=== PATIENT | female | born 1945 | race Caucasian/White ===

== ENCOUNTER → 2016-07-23 | Outpatient (CLI) | payer OTHER ==
[~2016-07-23] MED LIST: ACET-1311 PO; ADVIN25/60 INH; ASPCH81X PO; BACL10TA PO; CALC-51 PO; CALC600T9 PO; CHOL1000 PO; CYAN100020 PO; CYM/30 PO; FLUT0.15 NAE; GABA-113 PO; GABA1CAP5 PO; GARL10007 PO; GARL1TAB13 PO; HYDR-5688 PO; LEVO88TA3 PO; LOSA100T33 PO; METF-384 PO; OXYC-57 PO; SIMV40TA2 PO; VNTHFA/IN INH
--- NOTE | 2016-07-23 09:17 | DIAGNOSTIC IMAGING REPORT ---
CT CHEST SUPERDIMENSIONAL WITHOUT CT DOSE: 419.58 mGy.cm CLINICAL HISTORY: Pulmonary nodules TECHNIQUE: Helical images were acquired in transverse plane. COMPARISON STUDY: Noncontrast chest CT [facility]2016 FINDINGS: No thyroid abnormalities are visualized. There is no evidence of thoracic aortic aneurysm. There are coronary artery calcifications. Multiple gallstones are suspected. There are no adrenal masses. There is no evidence of pathologic axillary lymphadenopathy There is no evidence of pathologic hilar adenopathy given the limitations of a noncontrast study. There are multiple mediastinal lymph nodes which are at the upper limits of normal in size. There is pulmonary emphysema. There is a 7 mm left lower lobe pulmonary nodule as visualized in image #206/346. There is a 4 mm left lower lobe pulmonary nodule as visualized in image #202/346. There is 7 mm left lower lobe point nodule as visualized in image #187/346. There is a 3 mm left upper lobe pulmonary nodule as visualized in image #122/346. There is a 2 mm left upper lobe pulmonary nodule as visualized in image #66/346. There is a 5 mm right upper lobe pulmonary nodule as visualized in image #85/346. There is a 3 mm right upper lobe pulmonary nodule as visualized in image #134/346. There is a 6 mm bilobed right lower lobe pulmonary nodule as visualized in image #200/346. There is a 4 mm right lower lobe pulmonary nodule as visualized in image #209/346. IMPRESSION: 1. Multiple bilateral subcentimeter pulmonary nodules, similar in appearance to the prior June 30 study 2. Pulmonary emphysema 3. No evidence of focal pulmonary consolidation 4. Mediastinal lymph nodes at the upper limits of normal in size 5. Cholelithiasis Electronically signed by: Godfrey Harden M.D. 07/23/2016 9:15 AM
== END | disposition home or self-care (01) ==
LOC: C.CTS 08:46
PROVIDERS: ATTEND Surgery
DX: R91.8 Other nonspecific abnormal finding of lung field (principal); J43.9 Emphysema, unspecified; K80.20 Calculus of gallbladder without cholecystitis without obstruction

== ENCOUNTER 2016-07-25 08:10 | Day surgery (SDC) | payer OTHER ==
[2016-07-24 15:54] VITALS: BMI 28.0
[~2016-07-25] VITALS: Ht 165.1 cm; Wt 77.0 kg
[~2016-07-25 08:10] MED LIST changes: -CALC600T9 PO; -GARL10007 PO; +LACTATED RINGER'S 1000ML 1,000 ML IV SCH; +LOSA100T26 PO; -LOSA100T33 PO; -OXYC-57 PO
[2016-07-25 09:01] VITALS: BP 125/81; PULSE 64; TEMP 36.9; O2SAT 96; Ht 165.1 cm; Wt 77.0 kg
[2016-07-25 09:03] LABS: HEMATOCRIT 37.6 % (37-47); MEAN CELL VOLUME 84.9 fL (80-100); MEAN CORPUSCULAR HEMOGLOBIN 26.2 pg (25-34); MEAN PLATELET VOLUME 9.6 fL (7.4-10.4); PLATELET COUNT 447 K/uL (130-400); RED BLOOD COUNT 4.43 M/uL (4.2-5.4); WHITE BLOOD COUNT 6.73 K/uL (4.8-10.8)
[2016-07-25 09:31] LABS: MEAN CORPUSCULAR HGB CONC 30.9 g/dl (32-36)
[2016-07-25] MEDS ORDERED: EpHEDrine SULFATE INJ 50 MG/ML AMP IV PRN (10:30)
[2016-07-25] MEDS ORDERED: ONDANSETRON INJ 2 MG/ML 2 ML VIAL IV PRN (10:30)
[2016-07-25] MEDS ORDERED: ATROPINE SULFATE 0.1 MG/ML 5ML SYR IV PRN (10:30)
[2016-07-25] MEDS ORDERED: FENTANYL CITRATE INJ 50 MCG/1 ML 2 ML VIAL IV PRN (10:30)
--- NOTE | 2016-07-25 11:06 | History & Physical Bridge Note ---
H&P Re-Evaluation Bridge Note: I have examined the patient, reviewed the History & Physical and in the interval since the performance of the History & Physical I have noted the following changes of clinical significance: No changes noted
[2016-07-25] MEDS ORDERED: FENTANYL CITRATE INJ 50 MCG/1 ML 2 ML VIAL ONE ×2 (11:33→14:33)
[2016-07-25] MEDS ORDERED: LIDOCAINE HCL 2% 2 ML VIAL (20MG/ML) ONE ×2 (11:41→13:09)
[2016-07-25] MEDS ORDERED: METHYLENE BLUE 1% 10 ML VIAL ONE (11:43)
[2016-07-25] MEDS ORDERED: CLINDAMYCIN PHOS 150 MG/ML 2 ML VIAL ONE (12:40)
[2016-07-25] MEDS ORDERED: EpHEDrine SULFATE 50MG/5ML SYR ONE (12:57)
[2016-07-25] MEDS ORDERED: LARYING-O-JET KIT (LTA) EXT ONE ×2 (13:09)
[2016-07-25] MEDS ORDERED: PROPOFOL IV EMULSION 10 MG/ML 20 ML VIAL IV ONE ×2 (13:09→15:13)
[2016-07-25] MEDS ORDERED: ROCURONIUM BROMIDE 10 MG/ML 5 ML VIAL ONE ×2 (13:09→15:13)
[2016-07-25] MEDS ORDERED: GLYCOPYRROLATE INJ 0.2 MG/ML VIAL ONE ×2 (13:18→14:34)
[2016-07-25] MEDS ORDERED: BUPIVACAINE LIPOSOME 1/3% 266 MG/20 ML VIAL INFIL ONE (13:53)
--- NOTE | 2016-07-25 14:19 | Discharge Instructions ---
Discharge Instructions Visit Reason for Visit: Lung Nodules Discharge Discharge Diagnosis / Problem: Lung Nodules Discharge Goals Goal(s): Learn about illness Activity Recommendations Activity Limitations: resume your previous activity (in 24 hours) Anesthesia . Post Anesthesia Instructions: If you have had General Anesthesia or IV Sedation: * Do not drive today. * Resume driving when surgeon permits. * Do not make important decisions or sign legal documents today. * Call surgeon for: 1. Temperature elevations greater than 101 degrees F. 2. Uncontrollable pain. 3. Excessive bleeding. 4. Persistent nausea and vomiting. 5. Medication intolerance (nausea, vomiting or rash). * For nausea and vomiting use only clear liquids such as: tea, soda, bouillon until nausea subsides, then gradually increase diet as tolerated. * If you have any concerns or questions, call your surgeon's office. If physician is unavailable and it is an emergency, call 911 or go to the nearest emergency room. . Instructions / Follow-Up Instructions / Follow-Up 1. Follow-up appt. with Dr. Saravia in 1 week. Office will call you with date and time of appointment. You may cough up some blood. call physician if excessive amount noted. Diet Recommendations Recommended Home Diet: resume previous diet Pending Studies Studies pending at discharge: no Medical Emergencies . Who to Call and When: Medical Emergencies: If at any time you feel your situation is an emergency, please call 911 immediately. . Non-Emergent Contact Non-Emergency issues call your: Surgeon Call Non-Emergent contact if: temperature is above 100.5 . . "Provider Documentation" section prepared by Timothy Sanchez.
[2016-07-25] MEDS ORDERED: LABETALOL HCL IV 5 MG/ML 20ML ONE (14:34)
--- NOTE | 2016-07-25 15:02 | DIAGNOSTIC IMAGING REPORT ---
INTRAOPERATIVE RADIOGRAPHS CLINICAL HISTORY: Navigational bronchoscopy. Fluoroscopy time: 298 seconds. FINDINGS: 2 spot fluoroscopic views of the left lower chest are correlated with abdominal CT dated 07/23/2016. The bronchoscope projects over the left lower lobe on both images. There is no evidence of pneumothorax on these fluoroscopic views. IMPRESSION: Intraoperative images from left-sided bronchoscopy procedure. See operative report for detailed findings. Electronically signed by: Haris Snow M.D. 07/25/2016 3:00 PM Dictated Date/Time: 07/25/2016 2:58 PM
[2016-07-25] MEDS ORDERED: HydrALAZINE HCL 20 MG/ML VIAL ONE (15:12)
[2016-07-25] MEDS ORDERED: NEOSTIGMINE METHYLSULFATE 5 MG/5 ML SYR ONE (15:13)
--- NOTE | 2016-07-25 15:29 | DIAGNOSTIC IMAGING REPORT ---
SINGLE VIEW CHEST CLINICAL HISTORY: Status post bronchoscopy. FINDINGS: An AP, portable, upright chest radiograph is correlated with chest CT dated 07/23/2016. The examination is degraded by portable technique and patient rotation. The heart is enlarged and there is atherosclerotic calcification of the thoracic aorta. There is pulmonary vascular congestion. Emphysema and chronic interstitial thickening are identified. No airspace consolidation or large pleural effusion is seen. There is a small left apical pneumothorax with approximately 9 mm of pleural separation. Small metallic clips/fiducials project over the left lower lung. The skeletal structures are osteopenic. The bony thorax is grossly intact. IMPRESSION: 1. There is a small left apical pneumothorax identified post procedure. 2. Cardiomegaly with mild pulmonary vascular congestion. 3. Emphysema. Electronically signed by: Haris Snow M.D. 07/25/2016 3:27 PM Dictated Date/Time: 07/25/2016 3:25 PM
[2016-07-25 16:15] VITALS: BP 132/53; PULSE 70; TEMP 36.7; O2SAT 95
[2016-07-25 16:45] VITALS: BP 125/53; PULSE 71; O2SAT 96
[2016-07-25] MEDS ORDERED: NURSING VERBAL MED ORDER ONE (17:05)
[2016-07-25] MEDS ORDERED: ACETAMINOPHEN 325 MG TAB ONE (17:06)
[2016-07-25 17:15] VITALS: BP 144/69; PULSE 70; TEMP 37.2; O2SAT 98
--- NOTE | 2016-07-25 17:25 | OPERATIVE REPORT ---
DATE OF OPERATION: 07/25/2016 PREOPERATIVE DIAGNOSIS: 1. History of urothelial carcinoma with bilateral lung nodules. POSTOPERATIVE DIAGNOSIS: Same. PROCEDURE: 1. Navigational bronchoscopy with biopsy of left lower lobe nodules x2. 2. Marking of both nodules with fiducial marker and methylene blue for the inferior nodule. SURGEON: Dr. Saravia. CONTROL SPECIALIST: BARRY Belle. ANESTHESIA: General anesthesia and endotracheal intubation. 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 She has been evaluated by a urologist at [facility] and a consideration to a cystectomy with bilateral ureteral nephrectomies has been considered; however, on her workup, she was found to have a small nodule in her right upper lobe and 2 smaller nodules in her left upper lobe. Quite concerned about these as I feel they may well represent a metastatic disease. I saw the patient and her in the office and we had a very long discussion about this. Should she have metastatic disease in her lung, she is not a candidate for major resection. I elected to offer her a navigational bronchoscopy with biopsy. The right upper lobe lesion was small and against the pleura; however, I felt that we could access the 2 lower lobe lesions, although they are also small being subcentimeter. I told the patient that we would gabriel these with fiducial markers and methylene blue and then perform a left thoracoscopy with a wedge resection, if we did not get any answer from the rapid onsite evaluation. On 07/25/2016, I brought the patient to the operating room. She was very difficult intubation as her larynx was quite anterior. In anyway, the navigational bronchoscopy went well. I was able to locate both lesions and I put fiducial markers in both lesions. I also injected methylene blue to gabriel the more anterior lesion which was near the pleura. It was my feeling that we would go into wedge resection of this; however, there were suspicious cells on one of the biopsies, so it is possible we have a diagnosis, but we cannot tell from the rapid onsite evaluation. I did brushes and needles and forceps biopsies with touch preps of both lesions and felt with the radial ultrasound probe that we were in the middle of these. I did not biopsy the right because I never got a good access to this. It was peripheral and small and I simply could not get my scope or the navigational probe in position to where I felt the biopsy would be worthwhile. In addition, it was right against the pleura and I did not want to take a chance that could give her bilateral pneumothoraces. At this point, we elected to proceed with a thoracoscopy; however, patient was extremely difficult. We had difficulty doing this and the patient's blood pressure became labile. I elected to stop the case here. As we had difficulty getting a double lumen tube in, she has been under anesthesia for longer than 2 hours. I felt that the best plan would be to wait for the permanent sections and then bring her back as we did, use fiducial markers and we could wedge out these 2 masses in her left lower lobe at another date. She was extubated in the room although and appeared to be in stable condition at the conclusion of the case. DESCRIPTION OF PROCEDURE: The patient brought to the operating room and laid in supine position. General anesthesia induced and endotracheal intubation was performed. The fiberoptic bronchoscope was then placed. There was a scant amount of white sputum. I carefully inspected the trachea as well as the secondary and tertiary airways and saw no endobronchial lesions. Navigational probe was then placed in the distal trachea and after registering the airways, we then navigated out to most inferior nodule and came right upon this. This looked quite good fluoroscopically and a radial ultrasound probe showed that we were in the mass. I then did brush biopsies, needle biopsies and then did forceps biopsies and used touch preps and there were some suspicious cells; however, we could not call it on the rapid onsite evaluation. I elected fiducial marker and did so washings here. I then went to a more medial and superior lesion and this was a bit more difficult to get to, but after much manipulation, finally I was able to localize this with the radial probe and we again did brushes, needle biopsies forceps with touch preps and left the fiducial marker. It should be noted that I plan to wedge out the more anterior lesion and I did inject 0.5 mL of methylene blue towards the pleura. We then navigated out to the right upper lobe mass; however, I simply could not get a good shot at this. I tried this several times and finally stopped. It was my feeling that we were going to be doing a wedge resection anyway. We had very little in the way of bleeding. I suctioned out both airways and irrigated them out. I then slowly removed the bronchoscope. The patient was extubated over a tube exchanger and a double lumen tube was placed and it was very difficult. We finally got in place, but it had a great deal of difficulty getting this down into the left mainstem bronchus. At this point, especially in light of the fact we had suspicious cells on the touch preps, I felt that we may well have enough for diagnosis. I decided to abort here and discussed this with the patient's . I will bring that back in the office next week to go over the slides and if they are negative, I will bring her back and do a thoracoscopic wedge resection of these 2 nodules, under fluoroscopic guidance. I attest to the content of the Intraoperative Record and any orders documented therein. Any exceptio ns are noted below.
--- NOTE | 2016-07-25 17:55 | Anesthesiology Progress Note ---
Anesthesia Post Op Note Date & Time Jul 25, 2016 at 17:55 Vital Signs Pain Intensity: 3.0 Vital Signs Past 12 Hours Date Time Temp Pulse Resp B/P Pulse Ox O2 Delivery O2 Flow Rate FiO2 07/25/16 16:05 78 18 124/47 92 Room Air 07/25/16 15:55 36.3 73 15 117/71 90 Room Air 07/25/16 15:45 71 24 117/84 98 Nasal Cannula 2 07/25/16 15:35 70 20 130/54 94 Nasal Cannula 2 07/25/16 15:25 68 18 143/46 100 Mask 10 07/25/16 15:15 70 15 122/75 100 Mask 10 07/25/16 15:05 36.0 72 14 156/68 100 Mask 10 07/25/16 09:01 36.9 64 20 125/81 96 Room Air Notes Mental Status: alert / awake / arousable, participated in evaluation Pt Amnestic to Procedure: Yes Nausea / Vomiting: adequately controlled Pain: adequately controlled Airway Patency, RR, SpO2: stable & adequate BP & HR: stable & adequate Hydration State: stable & adequate Anesthetic Complications: no major complications apparent
[2017-02-03] MEDS ORDERED: CALC600T9 PO (14:39)
[2017-02-03] MEDS ORDERED: GABA-113 PO (14:39)
[2017-02-03] MEDS ORDERED: GARL10007 PO (14:39)
[2017-02-09] MEDS ORDERED: OXYC-57 PO (13:19)
== END 2016-07-25 17:50 | disposition home or self-care (01) ==
LOC: C.ACU 08:10
PROVIDERS: ATTEND Surgery
DX: R91.1 Solitary pulmonary nodule (principal); C67.9 Malignant neoplasm of bladder, unspecified; Z98.890 Other specified postprocedural states; Z91.041 Radiographic dye allergy status; Z88.8 Allergy status to other drugs, medicaments and biological substances; Z86.73 Personal history of transient ischemic attack (TIA), and cerebral infarction without residual deficits; Z80.9 Family history of malignant neoplasm, unspecified

== ENCOUNTER → 2016-08-25 | Outpatient (CLI) | payer OTHER ==
[~2016-08-25] MED LIST changes: +CALC600T9 PO; +GARL10007 PO; -LACTATED RINGER'S 1000ML 1,000 ML IV SCH; +OXYC-57 PO
--- NOTE | 2016-08-25 10:36 | DIAGNOSTIC IMAGING REPORT ---
PET/CT CLINICAL HISTORY: Bladder cancer. COMPARISON STUDY: CT scan of the chest dated 06/30/2016. Abdominal CT dated 01/10/2016. TECHNIQUE: One hour following the IV administration of 15.2 mCi of F-18 FDG, PET/CT examination was performed from the orbital meatal line through the bony pelvis. Noncontrast CT is performed for the purposes of anatomic correlation and attenuation correction. Note that this does not reflect a diagnostic CT examination. Images were reviewed on a separate [employer] independent workstation. Fused images were obtained. Standard uptake values reported are maximum values within the region of interest expressed in gm/mL. FINDINGS: PET FINDINGS: Head and neck: There is expected physiologic activity within the visualized brain parenchyma at the skull base and the salivary glands. There is a 2.1 cm FDG avid nodule identified within the right parotid gland on image #24. This demonstrates a maximum SUV of 5.6. Indeterminant focal FDG activity is identified just posterior to the anterior mandible on image #24. This demonstrates a maximum SUV of 5.0. Thorax: Evaluation of the thorax demonstrates expected physiologic myocardial activity. There are several pulmonary nodules which appear similar to the 06/30/[address] scan. The largest nodules are present in the right lower lobe on image #99 measuring 10 mm and in the left lower lobe on image #99 measuring 9 mm. At least 6 additional smaller nodules are identified. These nodules were not demonstrably FDG avid but are likely too small for PET characterization. Abdomen and pelvis: There is expected activity within the liver, spleen, kidneys, renal collecting system, and bladder. Low-level bowel activity is likely within physical limits. Unenhanced CT images: Visualized brain parenchyma the skull base is within normal limits. The visualized orbital contents are unremarkable. The visualized paranasal sinuses are clear. The mastoid air cells are well pneumatized. The left parotid gland and the submandibular glands are unremarkable. The thyroid gland is atrophic. No cervical lymphadenopathy is seen. There is atherosclerotic calcification of the thoracic aorta which is normal in caliber. The heart is enlarged and there is mild pericardial thickening. The coronary arteries are densely calcified. A small hiatal hernia is noted. Advanced emphysema is observed. There is no airspace consolidation or pleural effusion. See above under PET findings for discussion of pulmonary nodules. Metallic clips/fiducials are now identified in the left lower lobe. There is no mediastinal, hilar, or axillary lymphadenopathy. The unenhanced liver and adrenal glands are grossly unremarkable. There are numerous gallstones. The pancreas appears atrophic. There are calcified splenic granulomas. The kidneys demonstrate cortical atrophy and are without hydronephrosis. There is advanced atherosclerotic calcification of the abdominal aorta which is normal in caliber. There is no bowel obstruction. A duodenal diverticulum is incidentally noted. The appendix is well-visualized and normal. There is moderate to advanced colonic diverticulosis without CT evidence of acute diverticulitis. There is no abdominal, pelvic, or inguinal lymphadenopathy. The bladder is decompressed and not well assessed. The uterus and adnexa are normal as visualized. The skeletal structures are osteopenic. No lytic or blastic lesions are identified. IMPRESSION: 1. The bladder is decompressed and not well evaluated by PET due to significant excreted tracer activity within the urine. 2. There is no evidence of FDG avid metastatic disease in the abdomen or pelvis. 3. There are numerous (less than 10) indeterminant pulmonary nodules measuring up to 10 mm. These are likely similar in size and distribution to the 06/30/[address] scan when differences in technique are taken into account. These nodules were not demonstrably FDG avid but are too small for definitive PET characterization. 4. There is a 2.1 cm FDG avid nodule in the right parotid gland. 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 5. There is indeterminant FDG activity localizing just behind the anterior mandible. No corresponding lesion was seen on the low-dose CT images. Correlation with direct visualization is recommended. 6. Cardiomegaly and emphysema. 7. Advanced colonic diverticulosis without CT evidence of acute diverticulitis. 8. Cholelithiasis. 9. Additional findings as above. Electronically signed by: Haris Snow M.D. 08/25/2016 10:34 AM Dictated Date/Time: 08/25/2016 10:16 AM
== END | disposition home or self-care (01) ==
LOC: C.PET 07:32
PROVIDERS: ATTEND Internal Medicine Hematology
DX: C67.8 Malignant neoplasm of overlapping sites of bladder (principal); R91.8 Other nonspecific abnormal finding of lung field

== ENCOUNTER → 2016-12-01 | Outpatient (CLI) | payer OTHER ==
[~2016-12-01] MED LIST changes: -LOSA100T26 PO; +LOSA100T33 PO; +MethylPREDNISolone HOME PACK 16 MG TAB PO SCH; +OPTIRAY 320 IV PRN
--- NOTE | 2016-12-01 08:46 | DIAGNOSTIC IMAGING REPORT ---
ADDENDUM Comparison is now possible to a prior PET/CT fusion scan dated 08/25/2016. The multinodular bladder findings appear to represent an interval change. Neoplasm is again the diagnosis of exclusion. Electronically signed by: Stephane Sena M.D. 12/01/2016 8:50 AM Dictated Date/Time: 12/01/2016 8:49 AM ORIGINAL REPORT ABDOMEN AND PELVIS CT WITH IV AND ORAL CONTRAST CT DOSE: HISTORY: Bladder carcinoma BLADDER CA TECHNIQUE: Multiaxial CT images of the abdomen and pelvis were performed following the use of intravenous and oral contrast. COMPARISON STUDY: 01/10/2016 FINDINGS: Lung bases are clear. Fatty infiltration of the liver. Gallstones within the gallbladder lumen. Several small calcified splenic granulomas. Kidneys demonstrate mild fullness of the renal collecting systems bilaterally. This is slightly increased compared to the prior exam. There is a very small septated cyst lower pole right kidney unchanged. Bowel pattern is considered nonobstructive. Bladder shows multinodular-type changes throughout all major components of the bladder wall. The appendix is normal. There is no significant soft tissue pelvic adenopathy. The inguinal regions are unremarkable. IMPRESSION: 1. Diffuse nodularity of the bladder versus multi nodular polypoid change. 2. Mild fullness of the renal collecting systems and ureters bilaterally 3. A bladder neoplastic process must be considered. 4. Gallstones with fatty infiltration of liver. 5. No evidence for significant adenopathy or metastatic change. Electronically signed by: Stephane Sena M.D. 12/01/2016 8:44 AM Dictated Date/Time: 12/01/2016 8:39 AM
--- NOTE | 2016-12-01 08:50 | DIAGNOSTIC IMAGING REPORT ---
CT OF THE CHEST WITH IV CONTRAST CLINICAL HISTORY: Bladder carcinoma. COMPARISON STUDY: 07/23/2016 TECHNIQUE: Following the IV administration of 94 mL of Optiray-320, CT of the thorax was performed from the thoracic inlet to the lung bases. Images are reviewed in the axial, sagittal, and coronal planes. IV contrast was administered without complication. CT DOSE: FINDINGS: Thyroid: Falling minimal right thyroid tissue is visualized. No thyroid masses are evident. Thoracic aorta: The thoracic aorta is normal in course and caliber, noting standard 3-vessel arch anatomy. No aneurysm or dissection is seen. Pulmonary vasculature: The pulmonary trunk is normal in caliber. There are no central filling defects identified to suggest pulmonary embolus. Note that this examination was not protocoled for the evaluation of pulmonary emboli. HEART: The heart is enlarged. There are coronary calcifications present. Lungs and pleural spaces: There is pulmonary emphysema. There is no focal pulmonary consolidation. There are no pleural effusions. There is an 11 mm irregularly marginated right lower lobe point nodule as visualized in image #201/296. This remain stable. There is a stable 3 mm right upper lobe pulmonary nodule as visualized on image #148/296. There is a stable 3 mm left upper lobe pulmonary nodule as visualized on image #121/296. There is a stable 5 mm left lower lobe point nodule as visualized in image #208/296. There is a stable 8 mm left lower lobe pulmonary nodule as visualized in image #218/296. There is a 5 x 2 mm left lower lobe pulmonary nodule as visualized in image #197/296. This appears slightly smaller. Mediastinum: Mediastinal lymph nodes remain the upper limits of normal in size. [place]: There is no evidence of pathologic hilar adenopathy. Axilla: There is no evidence of pathologic axillary lymphadenopathy. Upper abdomen: There is mild hepatic steatosis. Skeletal structures: There are no lytic or blastic osseous lesions. IMPRESSION: 1. Multiple bilateral subcentimeter solid pulmonary nodules, essentially unchanged in size when compared the preceding study. 2. Mediastinal lymph nodes at the upper limits of normal in size. 3. Pulmonary emphysema Electronically signed by: Godfrey Harden M.D. 12/01/2016 8:48 AM Dictated Date/Time: 12/01/2016 8:40 AM
--- NOTE | 2016-12-01 09:07 | DIAGNOSTIC IMAGING REPORT ---
CT soft tissue neck SOFT TISSUE NECK WITH CLINICAL HISTORY: BLADDER CA bladder carcinoma TECHNIQUE: Transaxial acquisition with multi axial reformatted images. COMPARISON STUDY: PET scan dated 08/25/2016 FINDINGS: Unchanging 2.0 cm nodule deep to the right parotid gland. Unchanging nodular density posterior cervical chain demonstrating mild increase in activity on the prior PET scan. Unchanging nodular perimandibular change again previously described in the prior study. No new or interval findings. Salivary glands appear symmetric. Parotid and submandibular glands are unremarkable. Glottic and subglottic regions are unremarkable. IMPRESSION: 1. No change in the appearance of the CT of the soft tissue neck compared to the patient's prior PET scan. 2. Nodularity within the superior soft tissue neck is unchanged. 3. No evidence for new interval or progressive process based on this exam. Electronically signed by: Stephane Sena M.D. 12/01/2016 9:06 AM Dictated Date/Time: 12/01/2016 8:56 AM
== END | disposition home or self-care (01) ==
LOC: C.CTS 07:53
PROVIDERS: ATTEND Physician Assistant
DX: C67.8 Malignant neoplasm of overlapping sites of bladder (principal); D49.0 Neoplasm of unspecified behavior of digestive system

== ENCOUNTER → 2017-02-09 | Day surgery (SDC) | payer OTHER ==
[2017-02-03 14:41] VITALS: BMI 28.0
[~2017-02-09] VITALS: Ht 165.1 cm; Wt 76.8 kg
[~2017-02-09] MED LIST changes: +ATROPINE SULFATE 0.1 MG/ML 5ML SYR IV PRN; +BACITRACIN OINT 15 GM TUBE ONE; +BUPIVACAINE 0.5 % 5 MG/1 ML MPF 30ML VIAL ONE; -CALC-51 PO; +CEFAZOLIN 2000 MG/60 ML D5W IV SCH; +CEFAZOLIN IV 2,000 MG/60 ML D5W IV ONE; +EpHEDrine SULFATE INJ 50 MG/ML AMP IV PRN; +FENTANYL CITRATE INJ 50 MCG/1 ML 2 ML VIAL IV PRN; +FENTANYL CITRATE INJ 50 MCG/1 ML 2 ML VIAL ONE; -GABA1CAP5 PO; -GARL1TAB13 PO; -HYDR-5688 PO; +HYDROmorphone INJ 1 MG/ML SYR IV PRN; +KETAMINE HCL INJ 50 MG/ML 10 ML VIAL ONE; +LABETALOL HCL IV 5 MG/ML 20ML IV PRN; +LACTATED RINGER'S 1000ML 1,000 ML IV SCH; +LIDOCAINE HCL 1% 20 ML VIAL ONE; +LIDOCAINE HCL 2% 2 ML VIAL (20MG/ML) ONE; +LOSA100T26 PO; -LOSA100T33 PO; +MEPERIDINE HCL 25 MG/ML CARP IV PRN; +MIDAZOLAM HCL 1 MG/ML 2ML VIAL ONE; -MethylPREDNISolone HOME PACK 16 MG TAB PO SCH; +MoRPHine SULFATE 2 MG/ML CARP IV PRN; +MoRPHine SULFATE 4 MG/ML 1 ML CARP\\VIAL IV PRN; +ONDANSETRON INJ 2 MG/ML 2 ML VIAL IV PRN; +ONDANSETRON INJ 2 MG/ML 2 ML VIAL ONE; -OPTIRAY 320 IV PRN; +OXYCODONE/ACETAMINOPHEN 5-325 TAB PO PRN; +PROPOFOL IV EMULSION 10 MG/ML 20 ML VIAL IV ONE
[2017-02-09 11:09] VITALS: BP 168/63; PULSE 56; TEMP 36.7; O2SAT 97; Ht 165.1 cm; Wt 76.8 kg
[2017-02-09 11:30] LABS: BASO % 1.2 %; BASO ABS # 0.05 K/uL (0-0.2); EOS % 1.6 %; HEMATOCRIT 33.9 % (37-47); IG% 1.2 %; LYMPH ABS # 0.86 K/uL (1.2-3.4); MEAN CELL VOLUME 96.6 fL (80-100); MEAN CORPUSCULAR HEMOGLOBIN 30.2 pg (25-34); MEAN PLATELET VOLUME 9.2 fL (7.4-10.4); MONO % 21.8 %; NEUT % 54.2 %; PLATELET COUNT 210 K/uL (130-400); RED BLOOD COUNT 3.51 M/uL (4.2-5.4); WHITE BLOOD COUNT 4.31 K/uL (4.8-10.8)
[2017-02-09 11:35] LABS: COMPLETE YES; MEAN CORPUSCULAR HGB CONC 31.3 g/dl (32-36)
--- NOTE | 2017-02-09 13:11 | [facility] Post Operative Brief Note ---
Immediate Operative Summary Operative Date Feb 09, 2017. Pre-Operative Diagnosis aport insertion needed for chemotherapy Post-Operative Diagnosis aport insertion needed for chemotherapy Procedure(s) Performed Insertion of Venous Access Port to Right Internal Jugular Vein Surgeon Dr. Mike Faust Agronomy Manager Surgeon(s) Stephanie Andres PA-C Estimated Blood Loss 10ml Findings patent on SVC Fluids (cc crystalloids) 500ml Specimens none per surgeon Dr. Mike Faust Drains none Anesthesia sedation + local Complication(s) None Disposition Recovery Room / PACU
--- NOTE | 2017-02-09 13:18 | Discharge Instructions ---
Discharge Instructions Date of Service Feb 09, 2017. Admission Reason for Admission: Bladder, Lung, & Renal Cancer Discharge Discharge Diagnosis / Problem: Bladder, Lung, and Renal Cancer, aport insertion Discharge Goals Goal(s): Decrease discomfort Activity Recommendations Activity Limitations: as noted below No heavy lifting over 10 pounds for 1 week DO NOT raise right arm above head for 1 week No submerging incisions underwater for 2 weeks (No swimming, baths, or hot tubs) No driving while taking narcotic pain medication . Instructions / Follow-Up Instructions / Follow-Up You may shower in 3 days, sponge bath and wash hair in meantime. Try to keep dressings as dry as possible Keep steri strips on incisions for 10 days, they may fall off before that is okay. (Keep steri strips on neck incision for at least 1 week) If you are scheduled for chemotherapy sooner than 10 days you may remove steri strips on that incision. Follow-up with Dr. Faust in 1 week, please call office at [phone] if you do not already have an appointment Current Hospital Diet Patient's current hospital diet: Discharge Diet Recommended Diet: Regular Diet Procedures Procedures Performed: Insertion of Venous Access Port to Right Internal Jugular Vein Pending Studies Studies pending at discharge: no Medical Emergencies . Who to Call and When: Medical Emergencies: If at any time you feel your situation is an emergency, please call 911 immediately. . Non-Emergent Contact Non-Emergency issues call your: Primary Care Provider, Surgeon Call Non-Emergent contact if: you have a fever, temperature is above 101.5, your pain is not controlled, your pain is worsening, wound has increased drainage, wound has increased redness, wound has increased pain . "Provider Documentation" section prepared by Stephanie Andres. . VTE Core Measure Inpt VTE Proph given/why not?: Treatment not indicated [place] Drug Monitoring Program Search Results: patient reviewed within database, no issues identified
--- NOTE | 2017-02-09 13:22 | Anesthesiology Progress Note ---
Anesthesia Post Op Note Date & Time Feb 09, 2017 at 13:22 Vital Signs Pain Intensity: 0 Vital Signs Past 12 Hours Date Time Temp Pulse Resp B/P (MAP) Pulse Ox O2 Delivery O2 Flow Rate FiO2 02/09/17 13:12 37.2 60 16 162/67 100 Room Air 02/09/17 11:09 36.7 56 18 168/63 (98) 97 Room Air Notes Mental Status: alert / awake / arousable, participated in evaluation Pt Amnestic to Procedure: Yes Nausea / Vomiting: adequately controlled Pain: adequately controlled Airway Patency, RR, SpO2: stable & adequate BP & HR: stable & adequate Hydration State: stable & adequate Anesthetic Complications: no major complications apparent
--- NOTE | 2017-02-09 13:39 | DIAGNOSTIC IMAGING REPORT ---
CHEST ONE VIEW PORTABLE HISTORY: 72 years-old Female status post port insertion. COMPARISON: PET CT 08/25/2016, Chest radiograph 07/25/2016 TECHNIQUE: Portable upright AP view of the chest. FINDINGS: There is ventral placement of a right internal jugular Pjmlbj-p-Jrfo catheter with distal tip terminating to the right of midline within the expected region of the mid SVC. The patient is slightly rotated to the right. No postprocedural pneumothorax is identified. There is mild blunting the left costophrenic angle. There is nodularity of the lung bases measuring up to 2.0 cm. Bones appear grossly intact. IMPRESSION: 1. Status post placement of right internal jugular Oxsbvx-r-Cfew catheter terminating in the region of the mid SVC. No postprocedural pneumothorax identified. 2. Bibasilar nodularity is seen measuring up to 2.0 cm. These finding could be further evaluated with CT of the chest. 3. Mild blunting of left costophrenic angle may reflect atelectasis or trace pleural effusion. The above report was generated using voice recognition software. It may contain grammatical, syntax or spelling errors. Electronically signed by: Marco Antonio Aldana M.D. 02/09/2017 1:37 PM Dictated Date/Time: 02/09/2017 1:33 PM
[2017-02-09 13:42] VITALS: BP 172/74; PULSE 56; TEMP 37; O2SAT 99
[2017-02-09 14:10] VITALS: BP 154/70; PULSE 54; TEMP 37; O2SAT 96
--- NOTE | 2017-02-10 01:22 | OPERATIVE REPORT ---
DATE OF OPERATION: 02/09/2017 PREOPERATIVE DIAGNOSIS: Colon cancer, need of port insertion for chemo. POSTOPERATIVE DIAGNOSIS: Same. OPERATION: Insertion of port in right internal jugular vein. SURGEON: Dr. Mike Faust. PSYCHOLOGY ASSOCIATE: Stephanie Andres PA-C. ANESTHESIA: Conscious sedation plus local. ESTIMATED BLOOD LOSS: About 10 mL IV FLUID: 500 mL FINDING: Patent SVC and right internal jugular vein. COMPLICATIONS: None. INDICATION FOR THE PROCEDURE: This is a 72-year-old female who is referred for port insertion to treat her colon cancer for the chemo. I did talk to the patient about the benefit, risk and alternatives of the procedure, I indicated the risks may include but not limited such as bleeding, infection, injury to the vessel, injury to the lung, blood clog causing DVT, even , dysfunction of catheter. The patient understands. She signed informed consent. I answered all questions. DETAILS OF PROCEDURE: We brought the patient to the OR, put the patient in supine position. Then, we put SCD on bilateral legs to prevent DVT. The patient received 2 g Ancef IV for prophylactic antibiotic. The patient received conscious sedation by Anesthesiology. Then, we put the patient in Trendelenburg position. Then, I used ultrasound to gabriel right internal jugular vein. Then, the patient's right side of neck and right side of upper chest were prepped and draped in routine sterile fashion. After timeout, I injected local anesthesia on the right-sided neck, made about a 0.5 cm incision. Then, I used ultrasound to locate the right internal jugular vein. Used a 16-gauge needle, punctured right jugular vein without difficulty, passed the wire, removed the needle. Then, I used fluoro to confirm the wire and locate the SVC (superior vena cava). Then, I injected local on the right upper chest to make about a 3 cm incision on the right upper chest to create a pouch for the port. Hemostasis obtained. Then, I used dilator to connect the 2 incisions, passed the wire catheter in, then used a sheath, passed the wire into the SVC, removed the wire, and then I passed the catheter through the sheath, removed the sheath, and used fluoro again to locate the catheter tip in the junction between SVC and right atrium, then I connected the catheter to the port. I used 2-0 Prolene to fix the port on the right side chest wall at 3 points. Hemostasis obtained. I closed the incision by using 2-0 Vicryl for subcutaneous layer, closed skin by using 4-0 Vicryl continuous running, and then I used puncture needle to puncture the port, easily blood returned. I injected 10 mL heparinized saline. Then, we put the dressing on. The patient tolerated the procedure well. All instrument, needle and sponge count correct x2 at the end of case. The patient transferred to recovery room in stable condition. After the procedure, I did talk to the patient and family member about OR finding and procedure we did, they understand. I also gave them postop care instruction, they understand. I attest to the content of the Intraoperative Record and any orders documented therein. Any exception s are noted below.
== END | disposition home or self-care (01) ==
LOC: C.ACU 08:11
PROVIDERS: ATTEND Surgery
DX: C67.8 Malignant neoplasm of overlapping sites of bladder (principal); E11.42 Type 2 diabetes mellitus with diabetic polyneuropathy; E78.00 Pure hypercholesterolemia, unspecified; E05.10 Thyrotoxicosis with toxic single thyroid nodule without thyrotoxic crisis or storm; M81.0 Age-related osteoporosis without current pathological fracture; I10 Essential (primary) hypertension; J44.9 Chronic obstructive pulmonary disease, unspecified; D70.1 Agranulocytosis secondary to cancer chemotherapy; Z79.899 Other long term (current) drug therapy; I25.10 Atherosclerotic heart disease of native coronary artery without angina pectoris; I25.2 Old myocardial infarction; Z86.73 Personal history of transient ischemic attack (TIA), and cerebral infarction without residual deficits; Z87.891 Personal history of nicotine dependence; Z79.82 Long term (current) use of aspirin; Z79.84 Long term (current) use of oral hypoglycemic drugs

== ENCOUNTER → 2017-03-16 | Outpatient (CLI) | payer OTHER ==
[~2017-03-16] MED LIST changes: -ATROPINE SULFATE 0.1 MG/ML 5ML SYR IV PRN; -BACITRACIN OINT 15 GM TUBE ONE; -BUPIVACAINE 0.5 % 5 MG/1 ML MPF 30ML VIAL ONE; -CEFAZOLIN 2000 MG/60 ML D5W IV SCH; -CEFAZOLIN IV 2,000 MG/60 ML D5W IV ONE; -EpHEDrine SULFATE INJ 50 MG/ML AMP IV PRN; -FENTANYL CITRATE INJ 50 MCG/1 ML 2 ML VIAL IV PRN; -FENTANYL CITRATE INJ 50 MCG/1 ML 2 ML VIAL ONE; -HYDROmorphone INJ 1 MG/ML SYR IV PRN; -KETAMINE HCL INJ 50 MG/ML 10 ML VIAL ONE; -LABETALOL HCL IV 5 MG/ML 20ML IV PRN; -LACTATED RINGER'S 1000ML 1,000 ML IV SCH; -LIDOCAINE HCL 1% 20 ML VIAL ONE; -LIDOCAINE HCL 2% 2 ML VIAL (20MG/ML) ONE; -MEPERIDINE HCL 25 MG/ML CARP IV PRN; -MIDAZOLAM HCL 1 MG/ML 2ML VIAL ONE; -MoRPHine SULFATE 2 MG/ML CARP IV PRN; -MoRPHine SULFATE 4 MG/ML 1 ML CARP\\VIAL IV PRN; -ONDANSETRON INJ 2 MG/ML 2 ML VIAL IV PRN; -ONDANSETRON INJ 2 MG/ML 2 ML VIAL ONE; +OPTIRAY 320 IV PRN; -OXYCODONE/ACETAMINOPHEN 5-325 TAB PO PRN; -PROPOFOL IV EMULSION 10 MG/ML 20 ML VIAL IV ONE
--- NOTE | 2017-03-16 11:02 | DIAGNOSTIC IMAGING REPORT ---
(CHEST) THORAX WITH CLINICAL HISTORY: 72 years-old Female presenting with BLADDER CANCER. TECHNIQUE: Multidetector CT imaging of the chest was performed after the administration of intravenous contrast. IV contrast: 92 mL of Optiray 320. A dose lowering technique was used consistent with the principles of ALARA (as low as reasonably achievable). COMPARISON: 12/01/2016. CT DOSE (mGy.cm): The estimated cumulative dose is 1226.44 mGy.cm. FINDINGS: [employer] topogram: Unremarkable. On soft tissue windows, right internal jugular Mediport terminates in the SVC. Scattered subcentimeter mediastinal lymph nodes not significantly changed from prior exam, likely reactive. Few small bilateral hilar lymph nodes also present. Atherosclerosis of aortic arch. Mild enlargement of the main pulmonary artery, which measures 3.5 cm in maximal transverse dimension. Mild biatrial enlargement is suggested. Coronary artery calcification. No pericardial or pleural effusion. Suggestion of hepatic steatosis. Cholelithiasis. On lung windows, previously noted solid pulmonary nodules index below: -Irregular right lower lobe solid nodule now measures 8 mm, previously 8 mm (series 6 image 186). -Interval development of a solid pulmonary nodule at the right lung base measuring approximately 12 mm (series 6 image 206) -Stable appearance of the 3 mm solid pulmonary nodule in the right upper lobe (series 6 image 135) -Stable appearance of a 3 mm solid pulmonary nodule in the left upper lobe (series 6 image 123) -Segment interval decreased prominence of the peripheral left lower lobe nodule which now measures 6 mm, previously 8 mm (series 6 image 208) -More superiorly in the left lower lobe decreased prominence of the additional nodule which now measures 4 mm, previously 5 mm (series 6 image 189) Apical predominant mild emphysema. Numerous additional solid pulmonary nodules scattered throughout the left lower lobe, for example images 220, 228, 218. On bone windows, extensive degenerative change of the thoracic spine. No destructive osseous lesion. IMPRESSION: 1. Interval development of new pulmonary nodules, the largest measuring 12 mm at the right lung base with multiple new nodules in the left lower lobe. The additional previously noted bilateral solid pulmonary nodules are stable. Given the clinical history of bladder cancer, this raises concern for progression of disease. 2. No lymphadenopathy. 3. Emphysema. 4. Main pulmonary artery enlargement. 5. Suggestion of hepatic steatosis. 6. Cholelithiasis. Please see separately dictated CT of the abdomen and pelvis for additional findings. Electronically signed by: Ryan Deras M.D. 03/16/2017 11:01 AM Dictated Date/Time: 03/16/2017 10:51 AM
--- NOTE | 2017-03-16 11:10 | DIAGNOSTIC IMAGING REPORT ---
ABDOMEN AND PELVIS CT WITH IV AND ORAL CONTRAST CT DOSE: HISTORY: BLADDER CANCER TECHNIQUE: Multiaxial CT images of the abdomen and pelvis were performed following the use of intravenous and oral contrast. A dose lowering technique was utilized adhering to the principles of ALARA. COMPARISON STUDY: Abdomen and pelvis CT 12/01/2016. FINDINGS: Multiple subcentimeter pulmonary nodules which have increased in number. Dominant nodule within the base of the left lower lobe measures 7 mm. There is a stable 8 mm groundglass nodule within the left lower lobe on image 8. No pneumoperitoneum. No pneumatosis. No suspicious lytic or blastic osseous lesions. Mild hepatic steatosis. Punctate calcifications within the spleen. The adrenal glands and pancreas are unremarkable. Multiple gallstones filling the gallbladder. No gallbladder wall thickening. No retroperitoneal lymphadenopathy. The uterus and bilateral adnexa are unremarkable. A few prominent left pelvic sidewall lymph nodes. The largest measures 14 x 6 mm. These remain unchanged. Colonic diverticulosis. No bowel wall thickening or obstruction. Normal appendix. Tiny fat-containing umbilical hernia. 1 cm hypodense lesion within the right kidney remains stable. Multiple bladder masses are again noted. The bladder is decompressed resulting in suboptimal evaluation. Dominant bladder mass measures 1.5 cm. There is also soft tissue thickening at the left ureterovesical junction consistent with a additional site of neoplasm. This results in mild left hydronephrosis which has progressed. There is diffuse mild urothelial thickening within the left renal collecting system and left kidney. There are also areas of nodular thickening within the left renal collecting system with the largest soft tissue nodule measuring 7 mm. This is consistent with the patient's known history of urothelial malignancy. Mild left perinephric fat stranding which may be due to the hydronephrosis. Questionable soft tissue mass/thickening within the mid right ureter at the level of the iliac vessels. This is best in image 248. IMPRESSION: 1. Multiple bladder masses are again noted. There are also a few small urothelial masses seen within the left renal collecting system. This is consistent with the patient's history of a urothelial malignancy. The small mass at the left ureterovesical junction results in mild left hydronephrosis which is new from the prior study. 2. Questionable soft tissue mass/thickening within the mid right ureter at the level of the iliac vessels. However, there is no upstream dilatation. 3. Stable mildly prominent left pelvic sidewall lymph nodes. 4. Increase in number and size of the pulmonary nodules which is highly suspicious for metastatic disease. 5. There is also a 7 mm nodule within the left lower lobe which is ground glass. This could represent a low-grade primary bronchogenic malignancy. Follow is recommended. Electronically signed by: Baljeet Borja M.D. 03/16/2017 11:09 AM Dictated Date/Time: 03/16/2017 10:57 AM
== END | disposition home or self-care (01) ==
LOC: C.CTS 09:39
PROVIDERS: ATTEND Internal Medicine Hematology
DX: C67.8 Malignant neoplasm of overlapping sites of bladder (principal); R91.8 Other nonspecific abnormal finding of lung field

== ENCOUNTER → 2017-07-23 | Outpatient (CLI) | payer OTHER ==
[~2017-07-23] MED LIST changes: -LOSA100T26 PO; +LOSA100T33 PO
--- NOTE | 2017-07-23 09:04 | DIAGNOSTIC IMAGING REPORT ---
CHEST CT WITH CONTRAST CT DOSE: 1296.02 mGy.cm HISTORY: Follow-up scan in a patient with pulmonary nodules and history of bladder cancer MALIGNANT NEOPLASM BLADDER,LUNG NODULES TECHNIQUE: Multiaxial CT images of the chest, abdomen and pelvis were performed following the intravenous administration of intravenous contrast. Oral contrast also state archivist. A dose lowering technique was utilized adhering to the principles of ALARA. COMPARISON: CT chest 03/16/2017. FINDINGS: CT CHEST: No focal thyroid nodule identified. No pathologic adenopathy about the chest identified. Mildly prominent AP window lymph nodes are seen measuring up to 7 mm with subcarinal lymph node measuring 9 mm, unchanged. Heart is mildly enlarged with coronary arterial calcifications. Papillary calcifications are seen within the left intraconal. Aortic annular calcifications noted. There is moderate atherosclerosis of the thoracic aorta. No aortic aneurysm or dissection identified. Dilation of the main pulmonary artery is again seen, 3.4 cm suggesting pulmonary arterial hypertension. Right internal jugular Jdffqu-a-Umth catheter is noted with distal tip terminating in the SVC. Advanced emphysema without pneumothorax or pleural effusion. Multiple pulmonary nodules are again seen, largest measuring 2.2 x 1.8 cm abutting the adjacent fissure on image 180 series 4, previously measuring 8 mm on study dated 03/16/2017. Nodules within the basal right lower lobe measuring up to 12 mm are seen on image 202 series 4 which have also progressed from prior study. 6 mm nodule of the left lower lobe on image 29 series 4 is noted along with a 12 mm nodule of the left lower lobe on image 186 series 4 which previously measured approximately 4 mm. 9 mm nodule of the right upper lobe on image 102 series 4 previously measured 5 mm. Multiple additional subcentimeter pulmonary nodules are present bilaterally. No lobar airspace consolidation to suggest pneumonia. Central airways are patent. Cholelithiasis. Costophrenic granuloma are seen throughout the spleen and liver. Thickening of the left adrenal gland is unchanged. Soft tissues are unremarkable. No suspicious lytic or blastic bony lesions to suggest metastasis. The bones appear mildly demineralized. Degenerative changes are seen throughout the spine. CT ABDOMEN/PELVIS: Cholelithiasis without CT evidence of acute cholecystitis. Calcified granulomas are seen within the liver and spleen. No definite hepatic metastasis identified. Right adrenal gland is unremarkable. There is mild thickening of the left adrenal gland suggesting hyperplasia, unchanged. Mild diffuse pancreatic atrophy. Thank you urothelial enhancement is noted throughout the left ureter and left renal collecting system. There are multiple small urothelial mass is noted throughout the collecting system, ureteral pelvic junction and proximal ureter on the left including an 8 mm lesion of the left ureteropelvic junction, previously measuring 7 mm. There is a 9 mm urothelial lesion involving the inferior calyx of the left. There is moderate left-sided hydroureteronephrosis which has slightly progressed from prior study. The multiple ureteral lesions have also progressed from prior study. 6 mm urothelial lesion involves the inferior calyx on the right, image 166 series 7 which is new from prior exam. Focal urothelial lesion of the mid right ureter is noted on image 226 series 7 measuring 5 mm with multiple additional smaller right ureteral lesions which are progressed from prior study as well. Mild right-sided hydroureteronephrosis has developed. Multiple enhancing bladder masses are noted, largest which measures 3.9 x 2.8 cm, previously 2.6 x 2.2 cm. There is nodular lateral wall thickening noted throughout with mild perivesicular stranding. Uterus and adnexa are unremarkable. Moderate severe atherosclerosis of the aorta. Mildly prominent left pelvic sidewall lymph node measures 6 mm on image 341 series 7, unchanged. Right external iliac chain lymph node measures 8 mm on image 370 series 7, also unchanged. No new adenopathy identified. No bowel obstruction or focal bowel wall thickening. Tortuosity of the sigmoid colon. Moderate colonic diverticulosis without diverticulitis. Moderate colonic stool volume suggests constipation. No evidence of acute appendicitis. Soft tissues are unremarkable. The bones are unremarkable without suspicious lytic or blastic foci to suggest bony metastasis. IMPRESSION: 1. Progressive pulmonary metastasis involve the lungs bilaterally as above with largest metastatic focus involving the right lower lobe measuring 2.2 cm. 2. Progressively enlarged enhancing bladder masses with mildly progressive bilateral obstructive uropathy secondary to multiple new and enlarging urothelial lesions as above, left greater than right. These findings are consistent with patient history of metastatic urothelial carcinoma. 3. Unchanged mildly prominent left pelvic sidewall and right external iliac chain lymph nodes without new adenopathy identified. 4. No evidence of bony metastasis. 5. Prior granulomatous disease. 4. Cholelithiasis. 5. Emphysema with evidence of pulmonary arterial hypertension. Electronically signed by: Marco Antonio Aldana M.D. 07/23/2017 9:03 AM Dictated Date/Time: 07/23/2017 8:37 AM
== END | disposition home or self-care (01) ==
LOC: C.CTS 08:14
PROVIDERS: ATTEND Internal Medicine Hematology
DX: C67.8 Malignant neoplasm of overlapping sites of bladder (principal); R91.8 Other nonspecific abnormal finding of lung field; C78.01 Secondary malignant neoplasm of right lung; C78.02 Secondary malignant neoplasm of left lung; K80.20 Calculus of gallbladder without cholecystitis without obstruction; J43.9 Emphysema, unspecified

== ENCOUNTER 2017-09-04 10:55 | Inpatient (IN) | payer OTHER ==
[~2017-09-04] VITALS: Ht 165.1 cm; Wt 80.5 kg
[~2017-09-04 10:55] MED LIST changes: -OPTIRAY 320 IV PRN; -OXYC-57 PO
[2017-09-04] MEDS ORDERED: [UNRECOGNIZED DRUG - CODE] PO (12:19)
[2017-09-04] MEDS ORDERED: CIPROFLOXACIN 500 MG TAB PO STA (12:24)
[2017-09-04 12:49] LABS: BASO % 0.2 %; BASO ABS # 0.02 K/uL (0-0.2); EOS % 0.1 %; EOS ABS # 0.01 K/uL (0-0.5); HEMATOCRIT 32.6 % (37-47); HEMOGLOBIN 10.4 g/dL (12.0-16.0); IG# 0.04 K/uL (0.00-0.02); LYMPH % 6.4 %; MEAN CELL VOLUME 86.9 fL (80-100); MEAN CORPUSCULAR HEMOGLOBIN 27.7 pg (25-34); MEAN CORPUSCULAR HGB CONC 31.9 g/dl (32-36); MEAN PLATELET VOLUME 9.6 fL (7.4-10.4); MONO % 2.8 %; MONO ABS # 0.26 K/uL (0.11-0.59); NEUT % 90.1 %; NEUT ABS # 8.42 K/uL (1.4-6.5); PLATELET COUNT 273 K/uL (130-400); RED CELL DISTRIBUTION WIDTH CV 16.3 % (11.5-14.5); RED CELL DISTRIBUTION WIDTH SD 51.9 fL (36.4-46.3); WHITE BLOOD COUNT 9.35 K/uL (4.8-10.8)
--- NOTE | 2017-09-04 12:55 | DIAGNOSTIC IMAGING REPORT ---
KUB HISTORY: Acute hematuria Pt c/o hematuria COMPARISON: CT abdomen and pelvis 07/23/2017 FINDINGS: The bowel gas pattern is non-obstructive. There is no organomegaly. No renal calculi. No ureteral calculi. Renal shadows are partially obscured by bowel gas. Calcifications of the pelvis suggest phleboliths. No pneumoperitoneum or pneumatosis. No fracture. Degenerative changes are noted within the spine and hips. IMPRESSION: No renal or ureteral stones identified. Electronically signed by: Marco Antonio Aldana M.D. 09/04/2017 12:53 PM Dictated Date/Time: 09/04/2017 12:51 PM
[2017-09-04 13:03] LABS: ALBUMIN 3.3 gm/dl (3.4-5.0); CALCIUM 9.1 mg/dl (8.5-10.1); CREATININE 3.15 mg/dl (0.60-1.20); POTASSIUM 4.4 mmol/L (3.5-5.1)
[2017-09-04 13:05] LABS: TOTAL PROTEIN 7.3 gm/dl (6.4-8.2)
--- NOTE | 2017-09-04 13:27 | EMERGENCY ROOM VISIT NOTE ---
History Report prepared by Hemal: Yanet Espino Under the Supervision of: Dr. Joss Marroquin M.D. First contact with patient: 11:46 Chief Complaint: ABDOMINAL PAIN Stated Complaint: KIDNEYS History of Present Illness The patient is a 72 year old female who presents to the Emergency Room with complaints of persistent hematuria that began several days ago. The patient states that she currently has a urinary tract infection and is taking Cipro to relieve her symptoms. She denies having any abdominal pain. She notes that she called her PCP, who told her her symptoms might be related to the stent she has in place. The patient reports a history of kidney and bladder issues. Source of History: patient Onset: several days ago Position: other () Quality: other (hematuria ) Timing: other (persistent ) Associated Symptoms: No abdominal pain Review of Systems See HPI for pertinent positives & negatives. A total of 10 systems reviewed and were otherwise negative. Past Medical & Surgical Medical Problems: (1) Asthma (2) Bladder CA in situ (3) Bronchitis (4) Diabetes (5) Heart disease (6) Hematuria (7) Hypertension (8) Kidney disease (9) Kidney stone (10) PNA (pneumonia) (11) Skin problem (12) Ulcer Surgical Problems: (1) Bladder tumor Family History Cancer Diabetes mellitus FHx: hypertension Gallbladder disease Heart disease Lung disease Social History Smoking Status: Never Smoker Smokeless Tobacco Use: No Alcohol Use: none Drug Use: none Marital Status: Housing Status: lives with significant other Occupation Status: employed Current/Historical Medications Scheduled Calcium Carbonate-Vitamin D (Calcium + D), 1 TAB PO QAM Cholecalciferol (Vitamin D3), 1,000 UNITS PO NOON Ciprofloxacin-Ciprofloxacin Hc (Cipro Xr), 500 MG PO DAILY Cyanocobalamin (Vitamin B12), 1,000 MCG PO QAM Duloxetine HCl (Cymbalta), 30 MG PO NOON Fluticasone Prop/Salmeterol (Advair Diskus 250/50 60 Dose), 1 PUFF INH BID Gabapentin (Neurontin), 600 MG PO QAM Gabapentin (Neurontin), 600 MG PO QPM Gabapentin (Neurontin), 900 MG PO HS Levothyroxine Sodium (Levothyroxine Sodium), 88 MCG PO QAM Metformin Hcl (Glucophage), 1,000 MG PO BID Scheduled PRN Albuterol Hfa (Ventolin Hfa), 2-4 PUFFS INH Q6H PRN for SOB/Wheezing Baclofen (Lioresal), 10 MG PO HS PRN for LEG PAIN Fluticasone Propionate (Nasal) (Flonase Allergy Relief), 1 SPRAY LEATHA DAILY PRN for PRN Allergies Coded Allergies: Enalapril (Verified Allergy, Unknown, SEVERE COUGH, 09/04/17) Iodinated Diagnostic Agents (Verified Allergy, Unknown, HIVES FROM HEAD TO TOE., 09/04/17) Physical Exam Vital Signs Date Time Temp Pulse Resp B/P (MAP) Pulse Ox O2 Delivery O2 Flow Rate FiO2 09/04/17 14:35 61 16 178/88 94 Room Air 09/04/17 13:08 58 09/04/17 12:56 61 17 176/80 09/04/17 11:17 37.0 67 18 171/74 91 Room Air Physical Exam GENERAL: Patient is a healthy-appearing well-nourished female HEAD: Normocephalic atraumatic EYES: Ocular movements intact pupils equal and react to light OROPHARYNX mucous membranes are moist no exudates present no erythema or edema present NECK: Supple no nuchal rigidity CHEST: Good equal expansion LUNGS: Clear and equal to auscultation CARDIAC: Normal S1 and S2 ABDOMEN: Soft nontender no guarding BACK: No CVA tenderness EXTREMITIES: No pain upon palpation normal muscle strength in all groups no clubbing cyanosis or edema NEURO: Patient is following commands and answering questions appropriately. Alert and oriented x3 Cranial Nerves 2-12 grossly intact Medical Decision & Procedures ER Provider Diagnostic Interpretation: X-ray results as stated below per interpretation by me and the radiologist: KUB HISTORY: Acute hematuria Pt c/o hematuria COMPARISON: CT abdomen and pelvis 07/23/2017 FINDINGS: The bowel gas pattern is non-obstructive. There is no organomegaly. No renal calculi. No ureteral calculi. Renal shadows are partially obscured by bowel gas. Calcifications of the pelvis suggest phleboliths. No pneumoperitoneum or pneumatosis. No fracture. Degenerative changes are noted within the spine and hips. IMPRESSION: No renal or ureteral stones identified. Electronically signed by: Marco Antonio Aldana M.D. 09/04/2017 12:53 PM Dictated Date/Time: 09/04/2017 12:51 PM Laboratory Results Test 09/04/17 12:37 RDW Standard Deviation 51.9 fL (36.4-46.3) RDW Coefficient of Variation 16.3 % (11.5-14.5) White Blood Count 9.35 K/uL (4.8-10.8) Red Blood Count 3.75 M/uL (4.2-5.4) Hemoglobin 10.4 g/dL (12.0-16.0) Hematocrit 32.6 % (37-47) Mean Corpuscular Volume 86.9 fL (80-100) Mean Corpuscular Hemoglobin 27.7 pg (25-34) Mean Corpuscular Hemoglobin Concent 31.9 g/dl (32-36) Platelet Count 273 K/uL (130-400) Mean Platelet Volume 9.6 fL (7.4-10.4) Neutrophils (%) (Auto) 90.1 % Lymphocytes (%) (Auto) 6.4 % Monocytes (%) (Auto) 2.8 % Eosinophils (%) (Auto) 0.1 % Basophils (%) (Auto) 0.2 % Neutrophils # (Auto) 8.42 K/uL (1.4-6.5) Lymphocytes # (Auto) 0.60 K/uL (1.2-3.4) Monocytes # (Auto) 0.26 K/uL (0.11-0.59) Eosinophils # (Auto) 0.01 K/uL (0-0.5) Basophils # (Auto) 0.02 K/uL (0-0.2) Immature Granulocyte % (Auto) 0.4 % Immature Granulocyte # (Auto) 0.04 K/uL (0.00-0.02) Prothrombin Time 9.6 SECONDS (9.0-12.0) Prothromb Time International Ratio 0.9 (0.9-1.1) Urine Color YELLOW Urine Appearance CLOUDY (CLEAR) Urine pH 5.5 (4.5-7.5) Urine Specific [place] 1.009 (1.000-1.030) Urine Protein 2+ (NEG) Urine Glucose (UA) TRACE (NEG) Urine Ketones NEG (NEG) Urine Occult Blood 3+ (NEG) Urine Nitrite NEG (NEG) Urine Bilirubin NEG (NEG) Urine Urobilinogen NEG (NEG) Urine Leukocyte Esterase MODERATE (NEG) Urine WBC (Auto) >30 /hpf (0-5) Urine RBC (Auto) >30 /hpf (0-4) Urine Hyaline Casts (Auto) 1-5 /lpf (0-5) Urine Epithelial Cells (Auto) 20-30 /lpf (0-5) Urine Bacteria (Auto) NEG (NEG) Est Creatinine Clear Calc Drug Dose 17.0 ml/min Direct Bilirubin 0.1 mg/dl (0-0.2) Lipase 110 U/L (73-393) Medications Administered Medications (Trade) Dose Ordered Sig/Tabatha Route Start Time Stop Time Status Last Admin Dose Admin Ciprofloxacin (Cipro Tab) 500 mg NOW STAT PO 09/04/17 12:24 09/04/17 12:25 DC 09/04/17 13:07 500 MG Sodium Chloride 1,000 ml @ 999 mls/hr Q1H1M STAT IV 09/04/17 14:00 09/04/17 15:00 DC 09/04/17 14:35 999 MLS/HR ED Course 1201: Past medical records reviewed. The patient was evaluated in room B5. A complete history and physical examination was performed. 1224: Ordered Cipro Tab 500mg PO. 1400: Ordered Sodium Chloride 1000 ml @ 999 mls/hr IV. 1409: The patient's creatinine level last week was 1.45 and it is 3.15 today. Medical Decision Differential diagnosis: Etiologies such as appendicitis, diverticulitis, PUD, biliary pathology, UTI, pancreatitis, obstruction, mesenteric ischemia, aortic pathology, infections, inflammatory bowel disease, renal colic, as well as others were entertained. This is a 72-year-old female who presents emergency department after being sent in by her oncologist. The patient is found to be in acute renal failure therefore I recommended a CAT scan of the abdomen and pelvis. This is concerning for increased metastases. The patient states that she has a stent in place however I cannot visualize it nor has radiology commented on it on the CAT scan. I strongly recommended to the patient that she be transferred to [place] however the patient is requesting to be admitted here therefore I did discuss the case with the hospitalist service who agreed to see the patient. Medication Reconcilliation Current Medication List: was personally reviewed by me Blood Pressure Screening Patient's blood pressure: Elevated blood pressure Blood pressure disposition: Referred to PCP Impression Primary Impression: Bladder CA in situ Additional Impressions: Hematuria Acute renal failure Scribe Attestation The scribe's documentation has been prepared under my direction and personally reviewed by me in its entirety. I confirm that the note above accurately reflects all work, treatment, procedures, and medical decision making performed by me. Departure Information Dispostion Home / Self-Care Referrals No Doctor, Assigned (PCP) Forms Call Back Authorization, HOME CARE DOCUMENTATION FORM, IMPORTANT VISIT INFORMATION Patient Instructions My [facility] Problem Qualifiers Additional Impressions: Hematuria Hematuria type: unspecified type Qualified Codes: R31.9 - Hematuria, unspecified Acute renal failure Acute renal failure type: unspecified Qualified Codes: N17.9 - Acute kidney failure, unspecified
[2017-09-04] MEDS ORDERED: SODIUM CHLORIDE 0.9% 1000ML 1,000 ML IV STA (14:00)
--- NOTE | 2017-09-04 14:39 | DIAGNOSTIC IMAGING REPORT ---
ABD/PELVIS WITHOUT FOR STONE HISTORY: 72 years-old Female Pt ARF acute renal failure COMPARISON: CT abdomen and pelvis 07/23/2017 TECHNIQUE: Multiple axial CT images of the abdomen and pelvis were obtained without contrast. A dose lowering technique was used consistent with the principals of MIGUEL. FINDINGS: Metastatic nodules of the lung bases are again seen including a 1.5 cm nodule of the basal right lower lobe on image 1 series 3 which is partially imaged and increase in size from prior study where it measured 1.0 cm. 7 mm nodule of the posterior basal segment left lower lobe, also on image 1 of series 3 previously measured 6 mm and was more groundglass attenuating. No pneumatosis or pneumoperitoneum. Imaged inferior cardiac chambers are unremarkable. Evaluation of the solid abdominal organs is limited without the use of contrast. Scattered calcifications are again seen throughout the hepatic and splenic parenchyma compatible with prior granulomatous disease. No focal hepatic mass lesions or intrahepatic biliary ductal dilation. Cholelithiasis without CT evidence of acute cholecystitis. Mild generalized pancreatic atrophy. Adrenal glands are within normal limits. Mild nonspecific bilateral perinephric stranding. Moderate bilateral hydroureteronephrosis is noted with progressive dilation of the bilateral ureters and right renal collecting system. Multifocal areas of urothelial thickening are again seen bilaterally involving the left renal collecting system and bilateral ureters with evaluation limited on this noncontrast study. Multiple mural-based masses of the urinary bladder are again seen including a 2.9 cm lesion along the right lateral aspect of the bladder which appeared to previously measured 2.4 cm. Moderate perivesicular inflammatory stranding. Additionally, there is mild free pelvic fluid. Uterus and adnexa are unremarkable. Extensive atherosclerosis of the aorta. 6 mm left pelvic sidewall index lymph node on image 314 series 3 is unchanged. 8 mm right external iliac chain lymph node is also unchanged on image 345 series 3. No new or progressive adenopathy identified. Small sliding-type hiatal hernia. Small duodenal diverticulum. No bowel obstruction or focal bowel wall thickening. Moderate colonic diverticulosis without CT evidence of acute diverticulitis. Normal appendix. Soft tissues are unremarkable. Bones appear intact. No suspicious lytic or blastic bony lesions identified. IMPRESSION: 1. Progressively worsened bilateral obstructive uropathy with moderate hydroureteronephrosis and bilateral urothelial thickening. The previously described multifocal urothelial mass lesions involving the collecting systems and ureters are better seen on contrast-enhanced study dated 07/23/2017. Multiple mural-based lesions of the urinary bladder are also again seen which appear to have mildly increased in size. Findings suggest progression of disease. 2. Mildly increased size of a metastatic pulmonary nodule of the right lower lobe. 3. Unchanged mildly prominent left pelvic sidewall and right external iliac chain nodes without new or progressive adenopathy identified. 4. Cholelithiasis. 5. Small sliding-type hiatal hernia. 6. Colonic diverticulosis without diverticulitis. The above report was generated using voice recognition software. It may contain grammatical, syntax or spelling errors. Electronically signed by: Marco Antonio Aldana M.D. 09/04/2017 2:38 PM Dictated Date/Time: 09/04/2017 2:28 PM
--- NOTE | 2017-09-04 14:39 | DIAGNOSTIC IMAGING REPORT ---
(RENAL)RETROPERITON COMP CLINICAL HISTORY: 72 years-old Female presenting with Pt c/o bloody urine. TECHNIQUE: Real-time grayscale and limited color Doppler ultrasound imaging of the kidneys and bladder was performed. COMPARISON: CT from 07/23/2017. FINDINGS: Right kidney: Normal echogenicity of renal parenchyma. Right kidney measures 13.9 cm. Moderate pelvocaliectasis. No convincing evidence of calculus or mass. Normal perfusion. Left kidney: Normal echogenicity of renal parenchyma. Left kidney measures 15.6 cm. Moderate pelvocaliectasis. No convincing evidence of calculus or mass. Normal perfusion. Bladder: Multiple irregular polypoid bladder wall masses. Bilateral ureteral jets not visualized. Other: None. IMPRESSION: 1. Irregular polypoid bladder masses consistent with known urothelial carcinoma. 2. Moderate bilateral hydronephrosis, which may be worsened since CT from July, especially on the right. Electronically signed by: Ryan Deras M.D. 09/04/2017 2:38 PM Dictated Date/Time: 09/04/2017 2:20 PM
--- NOTE | 2017-09-04 15:56 | History and Physical ---
History & Physical Date & Time of Service: Sep 04, 2017 at 15:55 Chief Complaint: Kidneys Primary Care Physician: Samira Grove M.D. 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 , bladder and lungs , presents with intermittent hematuria for past 3 days ,also had foul smelling urine , low grade fever pt completed chemo tx with Carboplatin /gemcitabine on 03/16/17 has been on Opdivo/Nivolumab since 04/06/2017 , follows with Heme onc Dr Chemo Mata CT abdomen /pelvis showed bilateral hydroureteronephrosis , increased size of bladder mass , metastatic nodule in rt lower lungs ALYSSA /ATN due to obstructive uropathy , Cr > 3 ( was 0.9 on 08/11/17 ) hx of recurrent UTI , recent urine culture was positive for Klebsiella Past Medical/Surgical History Medical Problems: (1) Diabetes Status: Chronic (2) Heart disease Status: Chronic (3) Hypertension Status: Chronic (4) Kidney disease Status: Chronic (5) Skin problem Status: Chronic Family History Cancer Diabetes mellitus FHx: hypertension Gallbladder disease Heart disease Lung disease Social History Smoking Status: Never Smoker Smokeless Tobacco Use: No Drug Use: none Marital Status: Occupational Status: employed Allergies Coded Allergies: Enalapril (Verified Allergy, Unknown, SEVERE COUGH, 09/04/17) Iodinated Diagnostic Agents (Verified Allergy, Unknown, HIVES FROM HEAD TO TOE., 09/04/17) Home Medications Scheduled Calcium Carbonate-Vitamin D (Calcium + D), 1 TAB PO QAM Cholecalciferol (Vitamin D3), 1,000 UNITS PO NOON Ciprofloxacin-Ciprofloxacin Hc (Cipro Xr), 500 MG PO DAILY Cyanocobalamin (Vitamin B12), 1,000 MCG PO QAM Duloxetine HCl (Cymbalta), 30 MG PO NOON Fluticasone Prop/Salmeterol (Advair Diskus 250/50 60 Dose), 1 PUFF INH BID Gabapentin (Neurontin), 600 MG PO QAM Gabapentin (Neurontin), 600 MG PO QPM Gabapentin (Neurontin), 900 MG PO HS Levothyroxine Sodium (Levothyroxine Sodium), 88 MCG PO QAM Metformin Hcl (Glucophage), 1,000 MG PO BID Scheduled PRN Albuterol Hfa (Ventolin Hfa), 2-4 PUFFS INH Q6H PRN for SOB/Wheezing Baclofen (Lioresal), 10 MG PO HS PRN for LEG PAIN Fluticasone Propionate (Nasal) (Flonase Allergy Relief), 1 SPRAY LEATHA DAILY PRN for PRN Review of Systems Constitutional: + fever, + sweats, + weakness, + fatigue Respiratory: + shortness of breath Genitourinary - Female: + urinary frequency, + hematuria Neurologic: + weakness, + numbness/tingling, + vertigo Endocrine: + fatigue Physical Exam Vital Signs Date Time Temp Pulse Resp B/P (MAP) Pulse Ox O2 Delivery O2 Flow Rate FiO2 09/04/17 14:35 61 16 178/88 94 Room Air 09/04/17 13:08 58 09/04/17 12:56 61 17 176/80 09/04/17 11:17 37.0 67 18 171/74 91 Room Air General Appearance: no apparent distress Head: normocephalic, atraumatic Eyes: normal inspection, PERRL, EOMI, sclerae normal Neck: supple, no carotid bruits, trachea midline Respiratory/Chest: chest non-tender, lungs clear, normal breath sounds, no respiratory distress Cardiovascular: regular rate, rhythm, no JVD, normal peripheral pulses Abdomen/GI: normal bowel sounds, non tender, soft Back: no CVA tenderness Extremities/Musculoskelatal: normal inspection, no calf tenderness, no pedal edema Neurologic/Psych: no motor/sensory deficits, alert, normal mood/affect, oriented x 3 Diagnostics Laboratory Results Results Past 24 Hours Test 09/04/17 12:37 09/04/17 15:51 Range/Units White Blood Count 9.35 4.8-10.8 K/uL Red Blood Count 3.75 4.2-5.4 M/uL Hemoglobin 10.4 12.0-16.0 g/dL Hematocrit 32.6 37-47 % Mean Corpuscular Volume 86.9 80-100 fL Mean Corpuscular Hemoglobin 27.7 25-34 pg Mean Corpuscular Hemoglobin Concent 31.9 32-36 g/dl Platelet Count 273 130-400 K/uL Mean Platelet Volume 9.6 7.4-10.4 fL Neutrophils (%) (Auto) 90.1 % Lymphocytes (%) (Auto) 6.4 % Monocytes (%) (Auto) 2.8 % Eosinophils (%) (Auto) 0.1 % Basophils (%) (Auto) 0.2 % Neutrophils # (Auto) 8.42 1.4-6.5 K/uL Lymphocytes # (Auto) 0.60 1.2-3.4 K/uL Monocytes # (Auto) 0.26 0.11-0.59 K/uL Eosinophils # (Auto) 0.01 0-0.5 K/uL Basophils # (Auto) 0.02 0-0.2 K/uL RDW Standard Deviation 51.9 36.4-46.3 fL RDW Coefficient of Variation 16.3 11.5-14.5 % Immature Granulocyte % (Auto) 0.4 % Immature Granulocyte # (Auto) 0.04 0.00-0.02 K/uL Urine Color YELLOW Urine Appearance CLOUDY CLEAR Urine pH 5.5 4.5-7.5 Urine Specific [place] 1.009 1.000-1.030 Urine Protein 2+ NEG Urine Glucose (UA) TRACE NEG Urine Ketones NEG NEG Urine Occult Blood 3+ NEG Urine Nitrite NEG NEG Urine Bilirubin NEG NEG Urine Urobilinogen NEG NEG Urine Leukocyte Esterase MODERATE NEG Urine WBC (Auto) >30 0-5 /hpf Urine RBC (Auto) >30 0-4 /hpf Urine Hyaline Casts (Auto) 1-5 0-5 /lpf Urine Epithelial Cells (Auto) 20-30 0-5 /lpf Urine Bacteria (Auto) NEG NEG Sodium Level 139 136-145 mmol/L Potassium Level 4.4 3.5-5.1 mmol/L Chloride Level 105 98-107 mmol/L Carbon Dioxide Level 26 21-32 mmol/L Anion Gap 8.0 3-11 mmol/L Blood Urea Nitrogen 53 7-18 mg/dl Creatinine 3.15 0.60-1.20 mg/dl Est Creatinine Clear Calc Drug Dose 17.0 ml/min Estimated GFR () 16.4 Estimated GFR (Non- 14.1 BUN/Creatinine Ratio 17.0 10-20 Random Glucose 188 70-99 mg/dl Calcium Level 9.1 8.5-10.1 mg/dl Total Bilirubin 0.5 0.2-1 mg/dl Direct Bilirubin 0.1 0-0.2 mg/dl Aspartate Amino Transf (AST/SGOT) 10 15-37 U/L Alanine Aminotransferase (ALT/SGPT) 24 12-78 U/L Alkaline Phosphatase 58 45-117 U/L Total Protein 7.3 6.4-8.2 gm/dl Albumin 3.3 3.4-5.0 gm/dl Lipase 110 73-393 U/L Diagnostic Radiology CT ABDOMEN /PELVIS WITH OUT CONTRAST : IMPRESSION: 1. Progressively worsened bilateral obstructive uropathy with moderate hydroureteronephrosis and bilateral urothelial thickening. The previously described multifocal urothelial mass lesions involving the collecting systems and ureters are better seen on contrast-enhanced study dated 07/23/2017. Multiple mural-based lesions of the urinary bladder are also again seen which appear to have mildly increased in size. Findings suggest progression of disease. 2. Mildly increased size of a metastatic pulmonary nodule of the right lower lobe. 3. Unchanged mildly prominent left pelvic sidewall and right external iliac chain nodes without new or progressive adenopathy identified. 4. Cholelithiasis. 5. Small sliding-type hiatal hernia. 6. Colonic diverticulosis without diverticulitis. KUB HISTORY: Acute hematuria Pt c/o hematuria COMPARISON: CT abdomen and pelvis 07/23/2017 FINDINGS: The bowel gas pattern is non-obstructive. There is no organomegaly. No renal calculi. No ureteral calculi. Renal shadows are partially obscured by bowel gas. Calcifications of the pelvis suggest phleboliths. No pneumoperitoneum or pneumatosis. No fracture. Degenerative changes are noted within the spine and hips. IMPRESSION: No renal or ureteral stones identified. RENAL ULTRASOUND : IMPRESSION: 1. Irregular polypoid bladder masses consistent with known urothelial carcinoma. 2. Moderate bilateral hydronephrosis, which may be worsened since CT from July, especially on the right. Impression Assessment and Plan HEMATURIA : presented with intermittent hematuria , due to high grade urothelial bladder malignancy with bladder wall invasion HB ~11 pt had intermittent dizzy spell and lightheaded, CARREON Hematuria has resolved since arrival to ER monitor H&H Q 8hrs transfuse for Hb < 7 or /acute drop of hb /active bleeding-ongoing gross hematuria or symptom of debilitating dizzy spell , SOB avoid antiplatelets , anticoagulants HIGH GRADE BLADDER CA WITH WIDESPREAD METS had recurrent Ca since 2013 , completed Chemo tx on Opdivo and Prednisone CT abdomen pelvis shows : progressively worsened bilateral hydroureteronephrosis , with tumor invasion to both ureters , multiple mural based bladder tumor showing progression of disease , metastatic nodule at rt lower lobe of lungs very poor prognosis heme Onc eval requested pt follows with Dr Mata BILATERAL HYDROURETERONEPHROSIS due to above Urology eval requested appreciate input plan for palliative stent placement /will need tx to [facility] for placement of bilateral nephrostomy tube ACUTE KIDNEY INJURY /ATN WITH OBSTRUCTIVE UROPATHY : due to obstructive uropathy with tumor invasion in bilat ureter gradual worsening of Cr -0.9 ( 08/11/17 ) -> 1.4 ( 08/25/17) -> 2.3 ( 09/01/17 ) -> 3.15 ( 09/04/17 ) appreciate input from Nephrology gentle Hydration ordered will need ureteral stent follow BMP avoid NSAID's , Contrast studies HX OF RECURRENT UTI : recent urine culture was Klebsiella ordered for urine Culture empiric Abx with Zosyn -pharmacy consulted for renal dose TYPE 2 DM hold Metformin insulin SSI DIABETIC NEUROPATHY was on High dose of Neurontin 600 mg at AM/600 mg Noon /900 mg at PM dose reduced to 300 mg TID for low Cr clearance FULL CODE -d/w with patient DVT PROPHYLAXIS : moderate to high risk Scd and teds due to hematuria DISPOSITION : admit to medical floor ,may need tx to [facility] for bilateral nephrostomy tube placement Level of Care Med/Surg Resuscitation Status FULL RESUSCITATION VTE Prophylaxis VTE Risk Assessment Done? Y/N: Yes Risk Level: Moderate Given or contraindicated: T.E.Abdulkadir Stockings, SCD's Additional Copies To Chemo Maat M.D.
[2017-09-04 17:25] VITALS: BP 182/70; PULSE 70; TEMP 36.8; O2SAT 96
[2017-09-04 17:25] LABS: INR 0.9 (0.9-1.1)
[2017-09-04 17:45] VITALS: BP 182/70; PULSE 70; TEMP 36.8; O2SAT 96; BMI 28.7
[2017-09-04] MEDS ORDERED: MAGNESIUM HYDROXIDE SUSP 30 ML UDC PO PRN (18:30)
[2017-09-04] MEDS ORDERED: ONDANSETRON INJ 2 MG/ML 2 ML VIAL IV PRN (18:30)
[2017-09-04] MEDS ORDERED: POLYETHYLENE (MIRALAX) 17 GM PACK PO PRN (18:30)
[2017-09-04] MEDS ORDERED: ALUMINUM/MAGNESIUM/SIMETH (MAALOX MAX) 30 ML UDC PO PRN (18:30)
[2017-09-04] MEDS ORDERED: DEXTROSE 50% 50 ML SYR IV PRN (18:30)
[2017-09-04] MEDS ORDERED: ACETAMINOPHEN 325 MG TAB PO PRN (18:30)
[2017-09-04] MEDS ORDERED: GLUCOSE 40% GEL 15 GM TUBE PO PRN (18:30)
[2017-09-04] MEDS ORDERED: GLUCOSE 10 TABS/TUBE PO PRN (18:30)
[2017-09-04] MEDS ORDERED: GLUCAGON FOR INJ 1 MG VIAL SQ PRN (18:30)
[2017-09-04] MEDS ORDERED: ALBUTEROL HFA 8 GM INHALER INH PRN (18:45)
[2017-09-04] MEDS ORDERED: FLUTICASONE PROPIONATE NA SPR 16 GM BTL NAE PRN (18:45)
[2017-09-04] MEDS ORDERED: BACLOFEN 10 MG TAB PO PRN (18:45)
[2017-09-04] MEDS ORDERED: PIPERACILL/TAZOBAC IV 2.25 GM in DEXTROSE 5% 100ML 100 ML IV SCH (19:30)
[2017-09-04] MEDS ORDERED: PIPERACILL/TAZOBAC CONSULT ACTIVE PRN (19:30)
[2017-09-04] MEDS ORDERED: FLUTICASONE/SALMETEROL 250/50 (ADVAIR) 14 PUFF/1 INHALER INH SCH (20:00)
[2017-09-04] MEDS ORDERED: PIPERACILL/TAZOBAC IV 3.375 GM in DEXTROSE 5% 100ML IV ONE (20:00)
[2017-09-04] MEDS ORDERED: METFORMIN HCL 500 MG TAB PO SCH (20:00)
--- NOTE | 2017-09-04 20:52 | NEPHROLOGY CONSULTATION ---
DATE OF CONSULTATION: 09/04/2017 ATTENDING OF RECORD: Marie Liu MD. REASON FOR CONSULTATION: ALYSSA with hematuria. HISTORY OF PRESENT ILLNESS: This is a 72-year-old female who had a normal kidney function on 08/11/2017 of 0.9, 08/25/2017 went to 1.4, 09/01/2017 of 2.3, 09/03/2017 of 3. Urine culture was significant for group B strep of 10-100,000 colonies on 07/14/2017 and now with greater than 100,000, Klebsiella pneumoniae UTI. 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 Currently on Opdivo since 04/06/2017 as well as prednisone. The patient states that she has been having odor to her urine, and despite multiple oral agents, urinary tract infection is not improving. Does have underlying diabetes, history of smoking, quit over 20 years ago with underlying COPD. Has history of heart disease as well. Denies any NSAIDs, only takes Tylenol for pain. Still with a good appetite. Denies any fevers or chills. Did have one episode of hematuria which cleared and continues to have odor in the urine. CT shows progressively worsened bilateral obstructive uropathy with moderate hydroureteronephrosis and bilateral urothelial thickening, multiple mural based lesions of the urinary bladder showing a progression of disease. There is also a metastatic pulmonary nodule in the right lower lobe and diverticulosis, hiatal hernia, cholelithiasis. The patient had a renal ultrasound, showed right kidney at 13.9 cm and left kidney at 15.6 cm with moderate pelvocaliectasis, with irregular polypoid bladder masses consistent with known urothelial carcinoma. 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 PAST SURGICAL HISTORY: Bladder instillation of chemo, stent placed in 2015 of the ureter, thyroidectomy in 2014. REVIEW OF SYSTEMS: No fevers or chills. No weight loss. No blurry vision, no dysphagia, no chest pain, no shortness of breath. Did have one episode of nausea and vomiting. Still with a good appetite. No diarrhea or constipation. Had one episode of bloody urine. Continues to have an odor in the urine. No rash or itching. All other review of systems otherwise negative. CURRENT MEDICATIONS AT HOME: The patient is on metformin twice a day. CURRENT MEDICATIONS IN-HOUSE: Vitamin D 1000 units a day, Cymbalta 30 mg daily, Neurontin 600 mg daily, Synthroid 88 mcg daily, sliding scale insulin, Neurontin 900 mg at night, Advair inhaler twice a day, metformin 1 gram p.o. b.i.d., baclofen 10 mg as needed. FAMILY HISTORY: No renal disease in family PHYSICAL EXAMINATION: VITAL SIGNS: Temperature is 36.8, pulse 70, respiratory rate is 18, blood pressure 182/70, satting 96% on room air. GENERAL: Awake, alert, oriented x3. EYES: No scleral icterus. ENT: Moist mucous membranes. NECK: Supple. PULMONARY: Clear to auscultation. CARDIAC: Regular rate and rhythm. ABDOMEN: Bowel sounds positive. Soft, nontender. EXTREMITIES: No significant clubbing, cyanosis or edema. NEUROLOGICAL: Nonfocal. DERMATOLOGIC: No rash or ulcers noted. LABORATORY DATA: Sodium level is 139, potassium 4.4, chloride is 105, bicarbonate is 26, BUN is 53, creatinine is 3.15, glucose 188, calcium is 9.1. Albumin is 3.3. UA shows pH of 5.5, specific gravity 1.009, 2+ protein, 3+ blood, moderate leukocyte esterase, greater than 30 WBCs, greater than 30 RBCs. INR is 0.9. H&H 10 and 32, platelet count is 273. ASSESSMENT AND PLAN: Acute kidney injury, nonoliguric. Creatinine was normal in July and has slowly progressively worsened over the past 2 months, it is now at 3.15, with a CT scan showing bilateral hydronephrosis. I will discuss further with urology. May need stenting to help alleviate the hydronephrosis. Volume status appears appropriate but for now would continue IV fluids, normal saline at 100 mL an hour. No indication for emergent dialysis at this time. Does have underlying diabetes. No recent NSAIDs. No recent tobacco. If hydronephrosis resolves, perhaps kidney function will also improve. UA is suggestive for UTI and recent urine culture was positive for Klebsiella. We will discuss further with primary hospitalist but would continue antibiotics for the Klebsiella pneumoniae UTI as well as check blood cultures to be thorough. With the creatinine worsening, we will stop the metformin. Also concerned about the high doses of Neurontin in the setting of worsening kidney function, may need to consider reducing dose of Neurontin. Continue the IV fluids and we will discuss further with urology to see if any procedures are planned to help alleviate the worsening kidney function. Appreciate consultation. GEN
[2017-09-04] MEDS ORDERED: ALBUTEROL INH PRN (21:00)
[2017-09-04] MEDS: FLUTICASONE/SALMETEROL 250/50 (ADVAIR) 14 PUFF/1 INHALER INH SCH (21:00)
[2017-09-04] MEDS ORDERED: GABAPENTIN 300 MG CAP PO SCH (21:00)
[2017-09-04] MEDS: SODIUM CHLORIDE 0.9% 1000ML 1,000 ML IV SCH (21:01)
--- NOTE | 2017-09-04 21:55 | Urology Consultation ---
History General Date of Service: Sep 04, 2017. Chief Complaint: hydroureteronephrosis Primary Care Physician: Samira Grove M.D. Pt seen a urologist before?: Yes If yes, why?: bladder cancer History of Present Illness I am asked by Dr Ryan and Dr Liu to evaluate and treat patient for bilateral hydroureter. She has many year history of multiply recurrent bladder cancer . It eventually metastasized to lungs and new tumors developed in both ureters. She had her plans for cystectomy abandoned then for chemotherapy. She has had a partial response. She was actually pretty functional until recently. She had a lingering uti which is not responding to antibiotics. She has rising creatinine and new ct in ER showed bilateral hydroureter due to multiple ureteral masses. her bladder lesion seem bigger as well. She has intermittent hematuria. Imaging Imaging: CT Laboratory Results Past 24 Hours Test 09/04/17 12:37 09/04/17 21:23 Range/Units White Blood Count 9.35 4.8-10.8 K/uL Red Blood Count 3.75 4.2-5.4 M/uL Hemoglobin 10.4 12.0-16.0 g/dL Hematocrit 32.6 37-47 % Mean Corpuscular Volume 86.9 80-100 fL Mean Corpuscular Hemoglobin 27.7 25-34 pg Mean Corpuscular Hemoglobin Concent 31.9 32-36 g/dl Platelet Count 273 130-400 K/uL Mean Platelet Volume 9.6 7.4-10.4 fL Neutrophils (%) (Auto) 90.1 % Lymphocytes (%) (Auto) 6.4 % Monocytes (%) (Auto) 2.8 % Eosinophils (%) (Auto) 0.1 % Basophils (%) (Auto) 0.2 % Neutrophils # (Auto) 8.42 1.4-6.5 K/uL Lymphocytes # (Auto) 0.60 1.2-3.4 K/uL Monocytes # (Auto) 0.26 0.11-0.59 K/uL Eosinophils # (Auto) 0.01 0-0.5 K/uL Basophils # (Auto) 0.02 0-0.2 K/uL RDW Standard Deviation 51.9 36.4-46.3 fL RDW Coefficient of Variation 16.3 11.5-14.5 % Immature Granulocyte % (Auto) 0.4 % Immature Granulocyte # (Auto) 0.04 0.00-0.02 K/uL Prothrombin Time 9.6 9.0-12.0 SECONDS Prothromb Time International Ratio 0.9 0.9-1.1 Urine Color YELLOW Urine Appearance CLOUDY CLEAR Urine pH 5.5 4.5-7.5 Urine Specific [place] 1.009 1.000-1.030 Urine Protein 2+ NEG Urine Glucose (UA) TRACE NEG Urine Ketones NEG NEG Urine Occult Blood 3+ NEG Urine Nitrite NEG NEG Urine Bilirubin NEG NEG Urine Urobilinogen NEG NEG Urine Leukocyte Esterase MODERATE NEG Urine WBC (Auto) >30 0-5 /hpf Urine RBC (Auto) >30 0-4 /hpf Urine Hyaline Casts (Auto) 1-5 0-5 /lpf Urine Epithelial Cells (Auto) 20-30 0-5 /lpf Urine Bacteria (Auto) NEG NEG Sodium Level 139 136-145 mmol/L Potassium Level 4.4 3.5-5.1 mmol/L Chloride Level 105 98-107 mmol/L Carbon Dioxide Level 26 21-32 mmol/L Anion Gap 8.0 3-11 mmol/L Blood Urea Nitrogen 53 7-18 mg/dl Creatinine 3.15 0.60-1.20 mg/dl Est Creatinine Clear Calc Drug Dose 17.0 ml/min Estimated GFR () 16.4 Estimated GFR (Non- 14.1 BUN/Creatinine Ratio 17.0 10-20 Random Glucose 188 70-99 mg/dl Calcium Level 9.1 8.5-10.1 mg/dl Total Bilirubin 0.5 0.2-1 mg/dl Direct Bilirubin 0.1 0-0.2 mg/dl Aspartate Amino Transf (AST/SGOT) 10 15-37 U/L Alanine Aminotransferase (ALT/SGPT) 24 12-78 U/L Alkaline Phosphatase 58 45-117 U/L Total Protein 7.3 6.4-8.2 gm/dl Albumin 3.3 3.4-5.0 gm/dl Lipase 110 73-393 U/L Bedside Glucose 157 70-90 mg/dl Labs were reviewed and are within normal limits unless listed below. Labs are available in the chart and at [facility] Past History COPD, coronary artery disease, diabetes, hypothyroidism, renal disease Family History Cancer Diabetes mellitus FHx: hypertension Gallbladder disease Heart disease Lung disease Social History Hx Tobacco Use In Past Year?: No Smoking: quit greater than 1 year Alcohol: never Marital status: Housing status: lives with family Occupation status: employed Allergies Coded Allergies: Enalapril (Verified Allergy, Unknown, SEVERE COUGH, 09/04/17) Iodinated Diagnostic Agents (Verified Allergy, Unknown, HIVES FROM HEAD TO TOE., 09/04/17) Medications Home Medications: Home Meds and Scripts Medications Dose Route/Sig Max Daily Dose Days Date Category Dose Instructions Cipro Xr (Ciprofloxacin-Ciprofloxacin Hc) 1 Tab Tab 500 Mg PO DAILY 09/04/17 Reported EXTENDED RELEASE 500MG DAILY FILLED 09/03/17 @ [facility] [place] HAS NOT PICKED UP YET Calcium + D (Calcium Carbonate-Vitamin D) 1 Tab Tab 1 Tab PO QAM 02/03/17 Reported Neurontin (Gabapentin) 300 Mg Cap 900 Mg PO HS 02/03/17 Reported Vitamin D3 (Cholecalciferol) 1,000 Unit Tab 1,000 Units PO NOON 90 07/24/16 Reported Vitamin B12 (Cyanocobalamin) 1,000 Mcg Tab 1,000 Mcg PO QAM 07/24/16 Reported Ventolin Hfa (Albuterol) 200 Puffs/08123 Mcg Aers 2-4 Puffs INH Q6H PRN 07/24/16 Reported Glucophage (Metformin Hcl) 1,000 Mg Tab 1,000 Mg PO BID 07/24/16 Reported Levothyroxine Sodium 88 Mcg Tab 88 Mcg PO QAM 07/24/16 Reported Neurontin (Gabapentin) 300 Mg Cap 600 Mg PO QPM 07/24/16 Reported Neurontin (Gabapentin) 300 Mg Cap 600 Mg PO QAM 07/24/16 Reported Flonase Allergy Relief (Fluticasone Propionate (Nasal)) 50 Mcg/Act Spr 1 [place] LEATHA DAILY PRN 07/24/16 Reported Cymbalta (Duloxetine HCl) 30 Mg Cap 30 Mg PO NOON 30 07/24/16 Reported Lioresal (Baclofen) 10 Mg Tab 10 Mg PO HS PRN 07/24/16 Reported Advair Diskus 250/50 60 Dose (Fluticasone Prop/Salmeterol) 1 Ea Aerp 1 Puff INH BID 07/24/16 Reported Inpatient Medications: Current Inpatient Medications Medications (Trade) Dose Ordered Sig/Tabatha Route Start Time Stop Time Status Last Admin Dose Admin Acetaminophen (Tylenol Tab) 650 mg Q4H PRN PO 09/04/17 18:30 10/04/17 18:29 Al Hydrox/Mg Hydrox/Simethicone (Maalox Max Susp) 15 ml Q4H PRN PO 09/04/17 18:30 10/04/17 18:29 Magnesium Hydroxide (Milk Of Magnesia Susp) 30 ml Q6H PRN PO 09/04/17 18:30 10/04/17 18:29 Polyethylene (Miralax Powder Packet) 17 gm DAILY PRN PO 09/04/17 18:30 10/04/17 18:29 Ondansetron HCl (Zofran Inj) 4 mg Q6H PRN IV 09/04/17 18:30 10/04/17 18:29 Insulin Human Regular (novoLIN-R) SLIDING SCALE IF C... ACHS SC 09/04/17 21:00 10/04/17 20:59 Glucose (Glucose 40% Gel) 15-30 GRAMS 15 GRAMS... UD PRN PO 09/04/17 18:30 10/04/17 18:29 Glucose (Glucose Chew Tab) 4-8 Tablets 4 Tabl... UD PRN PO 09/04/17 18:30 10/04/17 18:29 Dextrose (Dextrose 50% 50ML Syringe) 25-50ML OF 50% DW IV FOR... UD PRN IV 09/04/17 18:30 10/04/17 18:29 Glucagon (Glucagon Inj) 1 mg UD PRN SQ 09/04/17 18:30 10/04/17 18:29 Baclofen (Lioresal Tab) 10 mg HS PRN PO 09/04/17 18:45 10/04/17 18:44 Cholecalciferol (Vitamin D Tab) 1,000 inter.unit DAILY PO 09/05/17 08:00 10/05/17 07:59 Duloxetine HCl (Cymbalta Cap) 30 mg DAILY PO 09/05/17 08:00 10/05/17 07:59 Fluticasone Propionate (Flonase Nasal [place]) 1 sprays DAILY PRN LEATHA 09/04/17 18:45 10/04/17 18:44 Gabapentin (Neurontin Cap) 600 mg QAM PO 09/05/17 08:00 10/05/17 07:59 Gabapentin (Neurontin Cap) 600 mg DAILY@1400 PO 09/05/17 14:00 10/05/17 13:59 Gabapentin (Neurontin Cap) 900 mg HS PO 09/04/17 21:00 10/04/17 20:59 09/04/17 21:05 900 MG Levothyroxine Sodium (Synthroid Tab) 88 mcg DAILYBB PO 09/05/17 06:30 10/05/17 06:29 Sodium Chloride 1,000 ml @ 100 mls/hr Q10H IV 09/04/17 19:00 10/04/17 18:59 09/04/17 21:01 100 MLS/HR Miscellaneous Information (Consult) 1 ea UD PRN N/A 09/04/17 19:30 10/04/17 19:29 Piperacillin Sod/ Tazobactam Sod 3.375 gm/Dextrose 115 ml @ 28.75 mls/ hr Q12H IV 09/05/17 04:00 09/15/17 03:59 Albuterol (Ventolin Hfa Inhaler) 2 puffs Q6H PRN INH 09/04/17 21:00 10/04/17 20:59 Salmeterol Xinafoate/ Fluticasone (Advair Diskus 250/50 Inh) 1 puff BID INH 09/04/17 21:00 10/04/17 20:59 Review of Systems Review of Systems Constitutional: No fever, No chills, No weight loss Neurological: No dizzy Endocrine: No excessive thirst, No too hot, No too cold, No tired/sluggish Gastrointestinal: No abdominal pain, No indigestion, No nausea, No constipation Cardiovascular: No chest pain, No palpitations Respiratory: + shortness of breath, + chronic cough Female : + blood in urine, + infections, No frequent urination, No urinary retention Physical Exam Vital Signs: Vital Signs Past 12 Hours Date Time Temp Pulse Resp B/P (MAP) Pulse Ox O2 Delivery O2 Flow Rate FiO2 09/04/17 17:45 36.8 70 18 182/70 96 Room Air 09/04/17 17:25 36.8 70 18 182/70 (107) 96 Room Air 09/04/17 17:00 65 16 178/88 94 09/04/17 14:35 61 16 178/88 94 Room Air 09/04/17 13:08 58 09/04/17 12:56 61 17 176/80 09/04/17 11:17 37.0 67 18 171/74 91 Room Air Physical Exam: General Appearance: WD/WN, no apparent distress, + obese Eyes: bilateral eyes normal inspection ENT: hearing grossly normal Neck: supple, no adenopathy, no JVD Respiratory/Chest: no respiratory distress, no accessory muscle use Cardiovascular: regular rate, rhythm Gastrointestinal: Abdomen: normal abdomen Renal: normal renal Hernia: absent hernia Liver: normal liver Extremities: non-tender, normal inspection, no pedal edema, no calf tenderness , normal capillary refill Neurologic/Psychiatric: alert, normal mood/affect, oriented x 3 Assessment & Plan Assessment & Plan multifocal urothelial cancer with small met to lung she has good functional capacity and wants to continue aggressive treatment. We need to drain the kidneys. We can try cysto stents but significant likelihood of failure. If we cant place stents retrograde she will need to go to [facility] for neph tubes tomorrow. she is in agreement for plan. I did explain risk of worsening her uti by the attempt at stent placement. she has signed consent having had her questions answered to her satisfaction.
[2017-09-04] MEDS: INSULIN HUMAN REGULAR SC SCH (22:03)
[2017-09-04 22:20] LABS: HEMATOCRIT 32.8 % (37-47); HEMOGLOBIN 10.4 g/dL (12.0-16.0)
[2017-09-04 23:05] VITALS: BP 180/76; PULSE 63; TEMP 36.8; O2SAT 96
[2017-09-05] VITALS (12 sets, daily range): BP systolic 152–191; BP diastolic 62–80; PULSE 60–74; TEMP 36.7–37.1; O2SAT 92–98; BMI 28.9
[2017-09-05] MEDS: PIPERACILL/TAZOBAC IV 3.375 GM in DEXTROSE 5% 100ML IV SCH ×2 (05:00→16:00)
[2017-09-05] MEDS: SODIUM CHLORIDE 0.9% 1000ML 1,000 ML IV SCH ×2 (05:01→14:26)
[2017-09-05] MEDS: LEVOTHYROXINE 88 MCG TAB PO SCH (06:30)
[2017-09-05] MEDS: INSULIN HUMAN REGULAR SC SCH ×4 (06:30→20:40)
[2017-09-05] MEDS ORDERED: Cysto-Conray II 17.2% 250ML BOTTLE ONE (06:54)
[2017-09-05] MEDS: GABAPENTIN 300 MG CAP PO SCH ×3 (06:59→20:35)
[2017-09-05] MEDS: CHOLECALCIFEROL 1000 INTER.UNIT TAB PO SCH (06:59)
[2017-09-05] MEDS: FLUTICASONE/SALMETEROL 250/50 (ADVAIR) 14 PUFF/1 INHALER INH SCH ×2 (06:59→20:00)
[2017-09-05] MEDS: DULOXETINE (CYMBALTA) 30 MG CAP PO SCH (06:59)
[2017-09-05] MEDS ORDERED: LIDOCAINE HCL 2% 2 ML VIAL (20MG/ML) ONE (07:13)
[2017-09-05] MEDS ORDERED: MIDAZOLAM HCL 1 MG/ML 2ML VIAL ONE (07:13)
[2017-09-05] MEDS ORDERED: FENTANYL CITRATE INJ 50 MCG/1 ML 2 ML VIAL ONE (07:13)
[2017-09-05] MEDS ORDERED: PROPOFOL IV EMULSION 10 MG/ML 20 ML VIAL IV ONE ×2 (07:13→08:40)
[2017-09-05] MEDS ORDERED: ONDANSETRON INJ 2 MG/ML 2 ML VIAL ONE (07:13)
--- NOTE | 2017-09-05 07:36 | History & Physical Bridge Note ---
H&P Re-Evaluation Bridge Note: I have examined the patient, reviewed the History & Physical and in the interval since the performance of the History & Physical I have noted the following changes of clinical significance: she had some wheezing overnight
[2017-09-05] MEDS ORDERED: FENTANYL CITRATE INJ 50 MCG/1 ML 2 ML VIAL IV PRN (07:45)
[2017-09-05] MEDS ORDERED: ATROPINE SULFATE 0.1 MG/ML 5ML SYR IV PRN (07:45)
[2017-09-05] MEDS ORDERED: LABETALOL HCL IV 5 MG/ML 20ML IV PRN (07:45)
[2017-09-05] MEDS ORDERED: ONDANSETRON INJ 2 MG/ML 2 ML VIAL IV PRN (07:45)
[2017-09-05] MEDS ORDERED: GABAPENTIN 300 MG CAP PO SCH ×2 (08:00→14:00)
[2017-09-05] MEDS ORDERED: DiphenhydrAMINE HCL 50 MG/ML VIAL ONE (08:34)
--- NOTE | 2017-09-05 09:04 | [facility] Operative Report ---
Operative Report Operative Date Sep 05, 2017. Pre-Operative Diagnosis Bilateral hydroureter, metastatic bladder cancer, renal failure Post-Operative Diagnosis same as preop Procedure(s) Performed Cystoscopy, right retrograde pyleogram, right stent placement Surgeon Dr. Deutsch Molding Cutter Surgeon(s) none Estimated Blood Loss 1 cc Findings sessile and papillary tumor throughout bladder Fluids 700mL Specimens none, as per surgeon Drains right 6 fr 24 centimeter double J stent Anesthesia Type MAC Complication(s) none Disposition yes Surgical ICU Indications acute renal failure and bilateral hydroureteronephrosis due to ureteral cancers and bladder cancer. we plan to try retrograde stent placement. Description of Procedure Patient was sedated and placed in lithotomy position. Her genitals were prepped and draped in sterile fashion. Time out held with team. I placed a 22 fr rigid cystoscope to bladder. The urethra is unremarkable. There are about 8 tumors some sessile and some papillary throughout the bladder. Several tumors have a film of necrotic tissue adherent to them. I used cold cups forceps to remove all the necrotic tissue. I think this necrotic tissue is the cause of her persistent urine infection. The UOs are identified on right and obscured by tumor on left. I placed a road runner wire up right ureter and with fluoro was able to get to upper ureter. I cannot get into kidney. I injected a bit of dye to show I am about a centimeter short of the kidney. She has tumor throughout the ureter. I cannot get even an angled road runner into the kidney. I did note hydro drip thru the 5 fr catheter in the upper ureter so I think there might be some benefit from placing the stent here. It might partially improve the drainage from the right kidney. I placed a 24 centimeter 6 Fr firm double J stent easily. There is brisk efflux after placement. I looked for the left UO and I cannot locate it. I left bladder empty and concluded case. He transferred to recovery under my escort, in stable condition. Plan: consider transfer to [facility] for nephrostomy tubes. ASA 3 dirty case 2 miutes 30 seconds seconds fluoro zosyn antibiotic prior to case I attest to the content of the Intraoperative Record and any orders documented therein. Any exceptions are noted below.
--- NOTE | 2017-09-05 09:10 | Anesthesiology Progress Note ---
Anesthesia Post Op Note Date & Time Sep 05, 2017 at 09:10 Vital Signs Pain Intensity: 0 Vital Signs Past 12 Hours Date Time Temp Pulse Resp B/P (MAP) Pulse Ox O2 Delivery O2 Flow Rate FiO2 09/05/17 09:00 61 16 168/74 100 Nasal Cannula 4 09/05/17 08:54 36.5 66 16 163/67 95 Nasal Cannula 4 09/05/17 07:02 36.7 65 18 166/72 (103) 94 Room Air 09/05/17 02:55 36.8 60 18 152/69 (96) 95 Room Air 09/05/17 00:20 Room Air 09/04/17 23:05 36.8 63 18 180/76 (110) 96 Room Air Notes Mental Status: alert / awake / arousable, participated in evaluation Pt Amnestic to Procedure: Yes Nausea / Vomiting: adequately controlled Pain: adequately controlled Airway Patency, RR, SpO2: stable & adequate BP & HR: stable & adequate Hydration State: stable & adequate Anesthetic Complications: no major complications apparent
--- NOTE | 2017-09-05 09:36 | DIAGNOSTIC IMAGING REPORT ---
RETROGRADE INCLUDES KUB CLINICAL HISTORY: RETROGRADE B/L STENT PLACEMENT COMPARISON STUDY: Abdomen and pelvis CT 09/04/2017. FINDINGS: Total fluoroscopy time was 150 seconds. 5 fluoroscopic spot images were submitted. Initial images demonstrate retrograde opacification of the proximal right ureter and right renal collecting system. Nodular filling defects seen within the proximal right ureter. This is followed by placement of a right ureteral stent. The stent appears to be in good position. IMPRESSION: 1. Fluoroscopy provided for placement of a right ureteral stent which appears to be in good position. 2. Nodular thickening within the proximal right ureter consistent with a urothelial mass. Electronically signed by: Baljeet Borja M.D. 09/05/2017 9:34 AM Dictated Date/Time: 09/05/2017 9:33 AM
[2017-09-05 10:46] LABS: HEMATOCRIT 32.9 % (37-47); HEMOGLOBIN 10.3 g/dL (12.0-16.0); MEAN CELL VOLUME 89.6 fL (80-100); MEAN CORPUSCULAR HEMOGLOBIN 28.1 pg (25-34); MEAN CORPUSCULAR HGB CONC 31.3 g/dl (32-36); MEAN PLATELET VOLUME 9.2 fL (7.4-10.4); PLATELET COUNT 235 K/uL (130-400); RED CELL DISTRIBUTION WIDTH SD 56.2 fL (36.4-46.3); WHITE BLOOD COUNT 9.29 K/uL (4.8-10.8)
[2017-09-05 11:13] LABS: CALCIUM 8.5 mg/dl (8.5-10.1); CREATININE 3.83 mg/dl (0.60-1.20); POTASSIUM 4.5 mmol/L (3.5-5.1)
[2017-09-05 11:19] LABS: HEMOGLOBIN A1C 7.5 % (4.5-5.6)
[2017-09-05 11:24] LABS: TOTAL PROTEIN 6.8 gm/dl (6.4-8.2)
--- NOTE | 2017-09-05 13:21 | NEPHROLOGY PROGRESS NOTE ---
DATE: 09/05/2017 SUBJECTIVE: The patient's creatinine continued to get worse. She had urological intervention earlier today where she had a stent in her right ureter by Dr. Deutsch for bilateral hydronephrosis. She is having gross hematuria at this time but denies having any other symptoms. She is otherwise stable. OBJECTIVE: GENERAL: Awake, alert, oriented x3. VITAL SIGNS: Blood pressure is high at 186/74, pulse rate 67 per minute, 96% on 2 liter nasal cannula. Urine since midnight today was 600 mL. HEENT: Mucous membranes are moist. NECK: Supple. No jugular venous distention. ABDOMEN: Soft, nontender. EXTREMITIES: Shows trace edema. LABORATORY TESTS: From this morning shows sodium 142, potassium 4.5, BUN 58; creatinine 3.83, which actually went up from yesterday; glucose 105. Hemoglobin A1c is 7.5. Hemoglobin 10.3, WBC count 9.29. IMAGING DATA: CT scan report showed progressively worsened bilateral obstructive uropathy with moderate hydroureteronephrosis and bilateral urothelial thickening as well as multiple other findings. ASSESSMENT AND PLAN: A 72-year-old female with metastatic bladder cancer, now with bilateral hydronephrosis and acute renal failure. She has had partial treatment for her obstructive uropathy earlier today with a stent in her right ureter. I doubt this will be enough. She ideally needs a bilateral percutaneous nephrostomy tube. The patient is followed by urology closely. Thank you very much for the consultation. GEN
[2017-09-05 14:00] LABS: HEMATOCRIT 33.2 % (37-47); HEMOGLOBIN 10.4 g/dL (12.0-16.0)
--- NOTE | 2017-09-05 14:56 | Medical Consult ---
Consultation Date of Consultation: Sep 05, 2017. Attending Physician: Calvin Wilson MD History of Present Illness Hematology/Oncology consult: Evaluation and management of urothelial carcinoma of the bladder as well as left ureter, now has worsening kidney function test. Date of consultation: 09/05/[address] Liu. 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 Current treatment: -Nivolumab (Opdivo) started on 04/06/2017. -prednisone (started around 05/11/2017), presently on at 10 mg once a day (for Nivolumab induced the arthritis) - 09/03/2017--> dose of prednisone increased to around 40 mg for possible Nivolumab (Opdivo) used a nephrotoxicity. Other related problems: -frequent UTI, last urine culture done on 08/25/2017 grew Klebsiella pneumoniae and Areococcus., recently she was treated with initially nitrofurantoin, change to ciprofloxacin on 09/03/2017. -joint pain related to Nivolumab (Opdivo), responded with the prednisone therapy , ~ Previous treatment: - Gemcitabine at 1000 mg/m2 weekly x2 followed by 1 week off, started on 2016. - Received 2 cycles of gemcitabine chemotherapy (weekly x2 followed by 1 week off). - Started carboplatin AUC of 4 on day 1 starting from 10/13/2016. Last cycle of carboplatin received on 03/10/2017. Last cycle of gemcitabine received on 03/16/2017. [facility] hospitalization (09/04/2017) For the last the few days she started noticing increased frequency of urination , hematuria occurred at home, recently had urine checkup as an outpatient showed signs of UTI, urine culture grow 2 bugs, initially she was started on nitrofurantoin, changed to ciprofloxacin on 09/03/2017, additional blood workup showed worsening kidney function test, now she is admitted in the hospital for further evaluation and management. The dose of prednisone also increased from 10 mg to 40 mg for possibility of Nivolumab (Opdivo) induced nephrotoxicity she also had joint pain related to the Nivolumab (Opdivo) which has responded well with prednisone therapy, -serum creatinine level increased to around 1.4 mg/dL (08/25/2017), earlier in July, it was around 0.9 mg/dL. Last dose of Nivolumab (Opdivo) received on 08/25/2017. -serum creatinine level--> 3.1 (09/04/2017). -CT scan of the abdomen and pelvis done on 09/04/2017 at [facility] showed progressive bilateral hydronephrosis and the thickening of the bilateral ureteral, multiple bladder lesions noted. Mild increase in the lung nodules in the right lower lobe noted stable pelvic lymphadenopathy noted. Gallstone present. She was seen by Dr. Deutsch, underwent cystoscopic evaluation, there are at least a different tumors noted in the bladder, some are sessile, some are papillary, S/P removal of the necrotic tumors, left ureteric orifices not identified, she was able to put right ureteric stent in her case. Dr. Deutsch recommended for percutaneous nephrostomy in her case, to be transferred at [facility]. I saw her at bedside, she has some mild hematuria, she does not any flank pain, denies any abdominal discomfort, no nausea or vomiting, no fever, no night sweats, no increasing leg edema, no bleeding from any sites. Presently she is receiving IV Zocin. Urine and blood culture pending. REVIEW OF SYSTEMS: GENERAL: No change in weight, some generalized weakness present, fatigue present, no fever, sweats or chills. SKIN: No skin rash, no bruising. HEAD: No new headache, no dizziness. EYES: No recent change in the vision, no diplopia, EARS: No earache no tinnitus, NOSE: No epistaxis, No nasal discharge or stuffiness, MOUTH: No sores, no dysphagia, no hoarseness of voice, NECK: No lumps, No swelling in thyroid area. No stiffness. PULMONARY: No cough, No shortness of breath at rest, no hemoptysis, no chest pain, No wheezing. CARDIOVASCULAR: No anginal chest pain, no PND, no orthopnea. No palpitation, no leg edema. No syncope. GASTROINTESTINAL: No abdominal pain, no nausea or vomiting. No diarrhea, No constipation. No blood in stool or black tarry stools. No abdominal distention. UROLOGIC: Increased frequency of urination noted. Hematuria for the last one week or so noted. MUSCULOSKELETAL: No joint pain at present but earlier she had multiple joint pain related to the Nivolumab (Opdivo) responded well with the prednisone therapy, No joint swelling, no muscle weakness. HEMATOLOGIC: No anemia, no bleeding disorder, No bruising. No history of blood transfusion. NEUROLOGIC: No seizures, no focal weakness, no speech difficulty, No memory disturbances. No tingling or numbness of the extremities. PSYCHIATRIC: No depression. No anxiety. No psychosis. SLEEP: No sleep disorder. Past medical and surgical history: -Diabetes mellitus, diabetic neuropathy, COPD, discontinue smoking habit about 20 years back, muscle spasm involving the both lower extremities, she was on Vicodin for the symptomatic treatment, -Hyperlipidemia, -She had right thyroidectomy in February,, as per the patient it showed benign findings. -History of coronary disease, no active anginal symptoms at present. -Hypothyroidism. ~ Social history: Nonsmoker, denies any ETOH abuse, she is , she lives with her . Family history: Not significant. Medications: Please review her chart for detailed list of medications. On exam: - Alert and oriented x3, well built woman, not in any distress. - HEENT: no icterus, mild pallor noted, Throat: Normal. - Neck: No palpable cervical lymphadenopathy. - Chest: clear to auscultation. - Abdomen: soft, nontender, no hepatomegaly, no splenomegaly. - No focal neuro deficit. - Extremities: no finger clubbing, no leg edema. Lab: -BUN/Creat: 58/3.8, normal liver function test, WBC 9200, H&H of 10.3/33, Platelet count of 235,000 (09/05/2017) ASSESSMENT AND PLAN: 72-year-old female, a case of metastatic urothelial carcinoma, she has metastatic disease involving the pelvic lymph nodes, multiple lung nodules, has multiple bladder tumors, ureteric tumors, presently she is receiving second-line treatment with immunotherapy in the form of Nivolumab (Opdivo) since March,. She had a normal kidney functions earlier about 1 month back, now she has worsening kidney function test, frequent UTI present, found to have bilateral hydronephrosis, seen by urologist Dr. Deutsch, underwent cystoscopic evaluation, left ureteric orifice could not be identified because of presence of the tumor, right ureteric stent placement done today morning, Dr. Deutsch suggest for percutaneous nephrostomy in her case , she is hemodynamically stable, receiving IV Zosyn antibiotic, blood and urine culture pending. Last dose of Nivolumab (Opdivo) received on 08/25/2017. Unfortunately her disease has further progressed, I am planning discontinue immunotherapy in her case. It is possible that she we may have to transfer her at [facility] for further management. Earlier she has experienced the increasing joint pain while on Nivolumab (Opdivo ) therapy responded well with the prednisone therapy, she was on oral prednisone at 10 mg per day, because of recent worsening kidney function test, we decided to increase the dose of prednisone to 40 mg per day but I do not think she has never been use nephrotoxicity and so we can cut down the dose to oral prednisone 10 mg per day at this time. If she does well, we can further cut down and the stop it in near future. Will follow up. Thanks for the consultation. Dr. Chemo Mata Hem/Onc (This note was completed using the dictation program Fluency Direct. As such, there may be misspellings, word substitutions, or other variations that should not change the essence of the clinical content of this encounter note. If there is need for further clarification, please direct questions to the provider listed above.) Family History Cancer Diabetes mellitus FHx: hypertension Gallbladder disease Heart disease Lung disease Social History Smoking Status: Never Smoker Smokeless Tobacco Use: No Drug Use: none Marital Status: Housing Status: lives with significant other Occupation Status: employed Allergies Coded Allergies: Enalapril (Verified Allergy, Unknown, SEVERE COUGH, 09/04/17) Iodinated Diagnostic Agents (Verified Allergy, Unknown, HIVES FROM HEAD TO TOE., 09/04/17) Current Inpatient Medications Current Inpatient Medications Medications (Trade) Dose Ordered Sig/Tabatha Route Start Time Stop Time Status Last Admin Dose Admin Acetaminophen (Tylenol Tab) 650 mg Q4H PRN PO 09/04/17 18:30 10/04/17 18:29 09/05/17 13:07 650 MG Al Hydrox/Mg Hydrox/Simethicone (Maalox Max Susp) 15 ml Q4H PRN PO 09/04/17 18:30 10/04/17 18:29 Magnesium Hydroxide (Milk Of Magnesia Susp) 30 ml Q6H PRN PO 09/04/17 18:30 10/04/17 18:29 Polyethylene (Miralax Powder Packet) 17 gm DAILY PRN PO 09/04/17 18:30 10/04/17 18:29 Ondansetron HCl (Zofran Inj) 4 mg Q6H PRN IV 09/04/17 18:30 10/04/17 18:29 Insulin Human Regular (novoLIN-R) SLIDING SCALE IF C... ACHS SC 09/04/17 21:00 10/04/17 20:59 09/05/17 14:26 2 UNITS Glucose (Glucose 40% Gel) 15-30 GRAMS 15 GRAMS... UD PRN PO 09/04/17 18:30 10/04/17 18:29 Glucose (Glucose Chew Tab) 4-8 Tablets 4 Tabl... UD PRN PO 09/04/17 18:30 10/04/17 18:29 Dextrose (Dextrose 50% 50ML Syringe) 25-50ML OF 50% DW IV FOR... UD PRN IV 09/04/17 18:30 10/04/17 18:29 Glucagon (Glucagon Inj) 1 mg UD PRN SQ 09/04/17 18:30 10/04/17 18:29 Baclofen (Lioresal Tab) 10 mg HS PRN PO 09/04/17 18:45 10/04/17 18:44 Cholecalciferol (Vitamin D Tab) 1,000 inter.unit DAILY PO 09/05/17 08:00 10/05/17 07:59 Duloxetine HCl (Cymbalta Cap) 30 mg DAILY PO 09/05/17 08:00 10/05/17 07:59 Fluticasone Propionate (Flonase Nasal [place]) 1 sprays DAILY PRN LEATHA 09/04/17 18:45 10/04/17 18:44 Levothyroxine Sodium (Synthroid Tab) 88 mcg DAILYBB PO 09/05/17 06:30 10/05/17 06:29 Sodium Chloride 1,000 ml @ 100 mls/hr Q10H IV 09/04/17 19:00 18 18:59 09/05/17 14:26 100 MLS/HR Miscellaneous Information (Consult) 1 ea UD PRN N/A 09/04/17 19:30 10/04/17 19:29 Piperacillin Sod/ Tazobactam Sod 3.375 gm/Dextrose 115 ml @ 28.75 mls/ hr Q12H IV 09/05/17 04:00 09/15/17 03:59 09/05/17 05:00 28.75 MLS/HR Albuterol (Ventolin Hfa Inhaler) 2 puffs Q6H PRN INH 09/04/17 21:00 10/04/17 20:59 09/05/17 02:47 2 PUFFS Salmeterol Xinafoate/ Fluticasone (Advair Diskus 250/50 Inh) 1 puff BID INH 09/04/17 21:00 10/04/17 20:59 Gabapentin (Neurontin Cap) 300 mg TID PO 09/05/17 08:00 10/05/17 07:59 09/05/17 14:19 300 MG Physical Exam Date Time Temp Pulse Resp B/P (MAP) Pulse Ox O2 Delivery O2 Flow Rate FiO2 09/05/17 12:03 36.7 67 20 186/74 (111) 96 Nasal Cannula 2.0 09/05/17 10:30 36.8 66 20 154/68 (96) 94 Nasal Cannula 2.0 09/05/17 10:00 98 Nasal Cannula 3.0 09/05/17 10:00 36.8 72 18 162/71 (101) 98 Nasal Cannula 3.0 09/05/17 09:30 36.9 60 20 177/74 (108) 98 Nasal Cannula 4.0 09/05/17 09:10 36.4 60 16 169/72 100 Nasal Cannula 4 09/05/17 09:00 61 16 168/74 100 Nasal Cannula 4 09/05/17 08:54 36.5 66 16 163/67 95 Nasal Cannula 4 09/05/17 07:02 36.7 65 18 166/72 (103) 94 Room Air 09/05/17 02:55 36.8 60 18 152/69 (96) 95 Room Air 09/05/17 00:20 Room Air 09/04/17 23:05 36.8 63 18 180/76 (110) 96 Room Air 09/04/17 19:30 Room Air 09/04/17 17:45 36.8 70 18 182/70 96 Room Air 09/04/17 17:25 36.8 70 18 182/70 (107) 96 Room Air 09/04/17 17:00 65 16 178/88 94 Laboratory Results Last 24 Hours Test 09/04/17 21:23 09/04/17 22:02 09/05/17 10:30 09/05/17 12:00 Bedside Glucose 157 mg/dl 105 mg/dl Hemoglobin 10.4 g/dL 10.3 g/dL Hematocrit 32.8 % 32.9 % White Blood Count 9.29 K/uL Red Blood Count 3.67 M/uL Mean Corpuscular Volume 89.6 fL Mean Corpuscular Hemoglobin 28.1 pg Mean Corpuscular Hemoglobin Concent 31.3 g/dl RDW Standard Deviation 56.2 fL RDW Coefficient of Variation 17.0 % Platelet Count 235 K/uL Mean Platelet Volume 9.2 fL Sodium Level 142 mmol/L Potassium Level 4.5 mmol/L Chloride Level 109 mmol/L Carbon Dioxide Level 27 mmol/L Anion Gap 6.0 mmol/L Blood Urea Nitrogen 58 mg/dl Creatinine 3.83 mg/dl Est Creatinine Clear Calc Drug Dose 14.0 ml/min Estimated GFR () 12.9 Estimated GFR (Non- 11.2 BUN/Creatinine Ratio 15.1 Random Glucose 113 mg/dl Estimated Average Glucose 169 mg/dl Hemoglobin A1c 7.5 % Calcium Level 8.5 mg/dl Total Bilirubin 0.3 mg/dl Aspartate Amino Transf (AST/SGOT) 17 U/L Alanine Aminotransferase (ALT/SGPT) 26 U/L Alkaline Phosphatase 55 U/L Total Protein 6.8 gm/dl Albumin 3.0 gm/dl Globulin 3.8 gm/dl Albumin/Globulin Ratio 0.8 Thyroid Stimulating Hormone (TSH) 3.920 uIu/ml Test 09/05/17 13:47 Hemoglobin 10.4 g/dL Hematocrit 33.2 %
[2017-09-05] MEDS ORDERED: HydrALAZINE HCL 20 MG/ML VIAL IV. STA (15:14)
--- NOTE | 2017-09-05 15:22 | Discharge Instructions ---
Discharge Instructions Date of Service Sep 05, 2017. Admission Reason for Admission: Bladder Ca In Situ, Hematuria Discharge Discharge Diagnosis / Problem: METASTATIC BLADDER CA , URETUERIC OBSTRUCTION DUE TO TUMOR, ALYSSA Discharge Goals Goal(s): Improve disease control, Diagnostic testing, Therapeutic intervention Activity Recommendations Activity Limitations: resume your previous activity . Instructions / Follow-Up Instructions / Follow-Up PT IS BEING TRANSFERRED TO [facility] FOR IR GUIDED PERCUTANEOUS NEPHROSTOMY ACCEPTING HOSPITALIST AT [facility] [place] HAMILTON Current Hospital Diet Patient's current hospital diet: Diabetes Type 2 Diet, Renal Diet Discharge Diet Recommended Diet: Diabetes Type 2 Diet, Renal Diet Procedures Procedures Performed: Cystoscopy, right retrograde pyleogram, right stent placement Pending Studies Studies pending at discharge: no Laboratory Results Hemoglobin A1c Test 09/05/17 10:30 Range/Units Estimated Average Glucose 169 mg/dl Hemoglobin A1c 7.5 H 4.5-5.6 % Medical Emergencies . Who to Call and When: Medical Emergencies: If at any time you feel your situation is an emergency, please call 911 immediately. . Non-Emergent Contact Non-Emergency issues call your: Primary Care Provider . . "Provider Documentation" section prepared by Marie Liu. . VTE Core Measure Inpt VTE Proph given/why not?: Kristal Live, SCD's
[2017-09-05] MEDS ORDERED: PIPE1INJ11 IV (15:24)
[2017-09-05] MEDS ORDERED: NRN300 PO (15:24)
[2017-09-05] MEDS ORDERED: ACET-1047 PO (15:25)
--- NOTE | 2017-09-05 15:57 | Progress Note ---
Internal Med Progress Note Date of Service: Sep 05, 2017. Provider Documentation: SUBJECTIVE: underwent cystoscopy with retrograde pyelogram this morning by Dr Deutsch s/p rt ureteric stent placement no report of fever or chills , had mild lower abdomen /bladder discomfort post procedure symptom is relieved after taking Tylenol no nausea or vomiting discussed with pt regarding finding of the Cystoscopy -found to have invasive tumor completely invading left ureter , managed to placed rt ureteric stent , found to have tumor mass on proximal part of ureter /near the kidney pt will need Nephrostomy tube placement to drainage Dr Deutsch recommend transfer to [facility] in [place], contacted [place], accepted for transfer pt will be transferred to via Ground /BLS to [facility] OBJECTIVE: Vital Signs-as noted below Exam: General-no sign of distress ,comfortable Eyes-sclera non icteric, PERRLA/EOMI ENT-moist oral mucosa Neck-no JVD, no thyromegaly Lungs-clear to auscultate, no wheeze or rales Heart-regular S1/S2 Abdomen-soft, non tender , mild tenderness on lower abdomen on palpation , bowel sound active Extremities-no lower ext edema Neuro-AAO x3, no focal deficit Lab data as noted below. ASSESSMENT & PLAN: BILATERAL HYDROURETERONEPHROSIS DUE TO INVASIVE BLADDER /URETERAL CA: hx of high grade papillary urothelial ca involving kidney bladder, proximal ureter with lung mets presents with hematuria , acute renal failure underwent Cystoscopy with rt sided retrograde pyelogram by Dr Deutsch /Urology today 09/05/17 in AM Cystoscopy shows : there area about 8 tumors some sessile and some papillary throughout the bladder several tumors have a film of necrotic tissues The UO was identified on right and obscured on by tumor on left managed to place rt sided ureteric stent inter operative rt sided retrograde pyelogram shows : 1. Nodular thickening on Proximal rt ureter consistent with urothelial mass 2. Fluoroscopy provided for placement of rt ureter consistent with a urothelial mass pt will need to be transferred to [facility] for Nephrostomy tube placement for drainage Contacted [facility] in [place] pt had her prior Urologic procedure for bladder Ca there in 2013 accepted for transfer today HEMATURIA : due to high grade urothelial bladder malignancy with bladder wall invasion Hb remains stable 10.4-> 1.0.3 avoid antiplatelets , anticoagulants HIGH GRADE BLADDER CA WITH WIDESPREAD METS had recurrent Ca since 2013 , had repeated TURBT completed Chemo tx with Carboplatin and gemcitabine on 02/2017 has been on on Opdivo/Nivolumab since 04/06/[address] abdomen pelvis shows : progressively worsened bilateral hydroureteronephrosis , with tumor invasion to both ureters , multiple mural based bladder tumor showing progression of disease , metastatic nodule at rt lower lobe of lungs very poor prognosis heme Onc eval requested pt follows with Dr Mata -appreciate input given progression of disease while on Optidivo -Immunotherapy is discontinued pt is being transferred to [place] for obstructive uropathy , wide spread tumor invasin in ureter -needs percutaneous drainage will cont to follow up with Dr Mata after being discharged form [place] ACUTE KIDNEY INJURY /ATN WITH OBSTRUCTIVE UROPATHY : due to obstructive uropathy with tumor invasion in bilat ureter gradual worsening of Cr -0.9 ( 08/11/17 ) -> 1.4 ( 08/25/17) -> 2.3 ( 09/01/17 ) -> 3.15 ( 09/04/17 ) given IVF cr worsened 3.15->3.8 pt dose not have s/s of uremia appreciate input from Nephrology needs to remove the tumor obstruction /renal drainage by Nephrostomy tube getting tx to [place] today HX OF RECURRENT UTI : due to tumor mass in bladder Cystocope showed -numerous bladder tumor with film of necrotic tissue adhere to them possible causing repeated Bladder infection recent urine culture was Klebsiella ordered for urine Culture -report still pending empiric Abx with Zosyn -pharmacy consulted for renal dose appreciate input on Zosyn 3.375 gm Iv Q 12 , which will be continued in [place] during and after IR guided procedure TYPE 2 DM hold Metformin insulin SSI DIABETIC NEUROPATHY was on High dose of Neurontin 600 mg at AM/600 mg Noon /900 mg at PM dose reduced to 300 mg TID for low Cr clearance FULL CODE -d/w with patient DVT PROPHYLAXIS : moderate to high risk Scd and teds due to hematuria DISPOSITION : Pt being transferred to [facility] for IR guided percutaneous Nephrostomy tube placement accepting [facility] Physician /hospitalist Dr Mansfield Vital Signs: Date Time Temp Pulse Resp B/P (MAP) Pulse Ox O2 Delivery O2 Flow Rate FiO2 09/05/17 15:24 72 175/80 (111) 92 Room Air 09/05/17 12:03 36.7 67 20 186/74 (111) 96 Nasal Cannula 2.0 09/05/17 10:30 36.8 66 20 154/68 (96) 94 Nasal Cannula 2.0 09/05/17 10:00 98 Nasal Cannula 3.0 09/05/17 10:00 36.8 72 18 162/71 (101) 98 Nasal Cannula 3.0 09/05/17 09:30 36.9 60 20 177/74 (108) 98 Nasal Cannula 4.0 09/05/17 09:10 36.4 60 16 169/72 100 Nasal Cannula 4 09/05/17 09:00 61 16 168/74 100 Nasal Cannula 4 09/05/17 08:54 36.5 66 16 163/67 95 Nasal Cannula 4 09/05/17 07:02 36.7 65 18 166/72 (103) 94 Room Air 09/05/17 02:55 36.8 60 18 152/69 (96) 95 Room Air 09/05/17 00:20 Room Air 09/04/17 23:05 36.8 63 18 180/76 (110) 96 Room Air 09/04/17 19:30 Room Air 09/04/17 17:45 36.8 70 18 182/70 96 Room Air 09/04/17 17:25 36.8 70 18 182/70 (107) 96 Room Air 09/04/17 17:00 65 16 178/88 94 Lab Results: Results Past 24 Hours Test 09/04/17 21:23 09/04/17 22:02 09/05/17 10:30 09/05/17 12:00 Range/Units Bedside Glucose 157 105 70-90 mg/dl Hemoglobin 10.4 10.3 12.0-16.0 g/dL Hematocrit 32.8 32.9 37-47 % White Blood Count 9.29 4.8-10.8 K/uL Red Blood Count 3.67 4.2-5.4 M/uL Mean Corpuscular Volume 89.6 80-100 fL Mean Corpuscular Hemoglobin 28.1 25-34 pg Mean Corpuscular Hemoglobin Concent 31.3 32-36 g/dl RDW Standard Deviation 56.2 36.4-46.3 fL RDW Coefficient of Variation 17.0 11.5-14.5 % Platelet Count 235 130-400 K/uL Mean Platelet Volume 9.2 7.4-10.4 fL Sodium Level 142 136-145 mmol/L Potassium Level 4.5 3.5-5.1 mmol/L Chloride Level 109 98-107 mmol/L Carbon Dioxide Level 27 21-32 mmol/L Anion Gap 6.0 3-11 mmol/L Blood Urea Nitrogen 58 7-18 mg/dl Creatinine 3.83 0.60-1.20 mg/dl Est Creatinine Clear Calc Drug Dose 14.0 ml/min Estimated GFR () 12.9 Estimated GFR (Non- 11.2 BUN/Creatinine Ratio 15.1 10-20 Random Glucose 113 70-99 mg/dl Estimated Average Glucose 169 mg/dl Hemoglobin A1c 7.5 4.5-5.6 % Calcium Level 8.5 8.5-10.1 mg/dl Total Bilirubin 0.3 0.2-1 mg/dl Aspartate Amino Transf (AST/SGOT) 17 15-37 U/L Alanine Aminotransferase (ALT/SGPT) 26 12-78 U/L Alkaline Phosphatase 55 45-117 U/L Total Protein 6.8 6.4-8.2 gm/dl Albumin 3.0 3.4-5.0 gm/dl Globulin 3.8 2.5-4.0 gm/dl Albumin/Globulin Ratio 0.8 0.9-2 Thyroid Stimulating Hormone (TSH) 3.920 0.300-4.500 uIu/ml Test 09/05/17 13:47 Range/Units Hemoglobin 10.4 12.0-16.0 g/dL Hematocrit 33.2 37-47 % Microbiology Results 09/05/17 Blood Culture, Received Pending 09/05/17 Blood Culture, Received Pending 09/04/17 Urine Culture, Received Pending
--- NOTE | 2017-09-05 15:59 | Discharge Summary ---
Discharge Summary Date of Service Sep 05, 2017. Discharge Summary Admission Date: Sep 04, 2017 at 15:53 Discharge Date: Sep 05, 2017 Discharge Disposition: Acute care facility ([facility] ) Principal Diagnosis: METASTATIC BLADDER CA , URETERIC OBSTRUCTION DUE TO TUMOR, ALYSSA Procedures: RETROGRADE INCLUDES KUB CLINICAL HISTORY: RETROGRADE B/L STENT PLACEMENT 09/05/17 : COMPARISON STUDY: Abdomen and pelvis CT 09/04/2017. FINDINGS: Total fluoroscopy time was 150 seconds. 5 fluoroscopic spot images were submitted. Initial images demonstrate retrograde opacification of the proximal right ureter and right renal collecting system. Nodular filling defects seen within the proximal right ureter. This is followed by placement of a right ureteral stent. The stent appears to be in good position. IMPRESSION: 1. Fluoroscopy provided for placement of a right ureteral stent which appears to be in good position. 2. Nodular thickening within the proximal right ureter consistent with a urothelial mass. CT ABDOMEN /PELVIS WITH OUT CONTRAST : 09/04/17 IMPRESSION: 1. Progressively worsened bilateral obstructive uropathy with moderate hydroureteronephrosis and bilateral urothelial thickening. The previously described multifocal urothelial mass lesions involving the collecting systems and ureters are better seen on contrast-enhanced study dated 07/23/2017. Multiple mural-based lesions of the urinary bladder are also again seen which appear to have mildly increased in size. Findings suggest progression of disease. 2. Mildly increased size of a metastatic pulmonary nodule of the right lower lobe. 3. Unchanged mildly prominent left pelvic sidewall and right external iliac chain nodes without new or progressive adenopathy identified. 4. Cholelithiasis. 5. Small sliding-type hiatal hernia. 6. Colonic diverticulosis without diverticulitis. KUB HISTORY: Acute hematuria Pt c/o hematuria COMPARISON: CT abdomen and pelvis 07/23/2017 FINDINGS: The bowel gas pattern is non-obstructive. There is no organomegaly. No renal calculi. No ureteral calculi. Renal shadows are partially obscured by bowel gas. Calcifications of the pelvis suggest phleboliths. No pneumoperitoneum or pneumatosis. No fracture. Degenerative changes are noted within the spine and hips. IMPRESSION: No renal or ureteral stones identified. RENAL ULTRASOUND : 09/04/17 IMPRESSION: 1. Irregular polypoid bladder masses consistent with known urothelial carcinoma. 2. Moderate bilateral hydronephrosis, which may be worsened since CT from July, especially on the right. Consultations: UROLOGY DR ALIN SO NEPHROLOGY HEME ONC DR MATA Medication Reconciliation New Medications: Piperacillin Sodium-Tazobactam (Zosyn) 1 Inj Inj 3.375 GM IV Q12 for 10 Days Acetaminophen (Mapap) 325 Mg Tab 650 MG PO Q4H PRN for Pain or Fever, #30 TAB Gabapentin (Gabapentin) 300 Mg Cap 300 MG PO TID for 30 Days, CAP Continued Medications: Albuterol Hfa (Ventolin Hfa) 200 Puffs/73530 Mcg Aers 2-4 PUFFS INH Q6H PRN for SOB/Wheezing, #1 INHALER Baclofen (Lioresal) 10 Mg Tab 10 MG PO HS PRN for LEG PAIN, TAB Calcium Carbonate-Vitamin D (Calcium + D) 1 Tab Tab 1 TAB PO QAM Cholecalciferol (Vitamin D3) 1,000 Unit Tab 1000 UNITS PO NOON for 90 Days, TAB 3 Refills Cyanocobalamin (Vitamin B12) 1,000 Mcg Tab 1000 MCG PO QAM Duloxetine HCl (Cymbalta) 30 Mg Cap 30 MG PO NOON for 30 Days, CAP 2 Refills Fluticasone Prop/Salmeterol (Advair Diskus 250/50 60 Dose) 1 Ea Aerp 1 PUFF INH BID, INHALER Fluticasone Propionate (Nasal) (Flonase Allergy Relief) 50 Mcg/Act Spr 1 SPRAY LEAHTA DAILY PRN for PRN Levothyroxine Sodium (Levothyroxine Sodium) 88 Mcg Tab 88 MCG PO QAM, TAB 3 Refills Discontinued Medications: Ciprofloxacin-Ciprofloxacin Hc (Cipro Xr) 1 Tab Tab 500 MG PO DAILY EXTENDED RELEASE 500MG DAILY FILLED 09/03/17 @ [facility] IN [place] HAS NOT PICKED UP YET Gabapentin (Neurontin) 300 Mg Cap 600 MG PO QAM, CAP Gabapentin (Neurontin) 300 Mg Cap 600 MG PO QPM, CAP Gabapentin (Neurontin) 300 Mg Cap 900 MG PO HS, CAP Metformin Hcl (Glucophage) 1,000 Mg Tab 1000 MG PO BID, TAB Admission Information HPI (per Admitting provider): 72 yo F with medical hx of 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 , bladder and lungs , presents with intermittent hematuria for past 3 days ,also had foul smelling urine , low grade fever pt completed chemo tx with Carboplatin /gemcitabine on 03/16/17 has been on Opdivo/Nivolumab since 04/06/2017 , follows with Heme onc Dr Chemo Mata CT abdomen /pelvis showed bilateral hydroureteronephrosis , increased size of bladder mass , metastatic nodule in rt lower lungs ALYSSA /ATN due to obstructive uropathy , Cr > 3 ( was 0.9 on 08/11/17 ) hx of recurrent UTI , recent urine culture was positive for Klebsiella Physical Exam (per Admitting): General Appearance: no apparent distress Head: normocephalic, atraumatic Eyes: normal inspection, PERRL, EOMI, sclerae normal Neck: supple, no carotid bruits, trachea midline Respiratory/Chest: chest non-tender, lungs clear, normal breath sounds, no respiratory distress Cardiovascular: regular rate, rhythm, no JVD, normal peripheral pulses Abdomen/GI: normal bowel sounds, non tender, soft Back: no CVA tenderness Extremities/Musculoskelatal: normal inspection, no calf tenderness, no pedal edema Neurologic/Psych: no motor/sensory deficits, alert, normal mood/affect, oriented x 3 Hospital Course BILATERAL HYDROURETERONEPHROSIS DUE TO INVASIVE BLADDER /URETERAL CA: hx of high grade papillary urothelial ca involving kidney bladder, proximal ureter with lung mets presents with hematuria , acute renal failure underwent Cystoscopy with rt sided retrograde pyelogram by Dr Deutsch /Urology today 09/05/17 in AM Cystoscopy shows : there area about 8 tumors some sessile and some papillary throughout the bladder several tumors have a film of necrotic tissues The UO was identified on right and obscured on by tumor on left managed to place rt sided ureteric stent inter operative rt sided retrograde pyelogram shows : 1. Nodular thickening on Proximal rt ureter consistent with urothelial mass 2. Fluoroscopy provided for placement of rt ureter consistent with a urothelial mass pt will need to be transferred to [facility] for Nephrostomy tube placement for drainage Contacted [facility] in [place] pt had her prior Urologic procedure for bladder Ca there in 2013 accepted for transfer today HEMATURIA : due to high grade urothelial bladder malignancy with bladder wall invasion Hb remains stable 10.4-> 1.0.3 avoid antiplatelets , anticoagulants HIGH GRADE BLADDER CA WITH WIDESPREAD METS had recurrent Ca since 2013 , had repeated TURBT completed Chemo tx with Carboplatin and gemcitabine on 02/2017 has been on on Opdivo/Nivolumab since 9/18/[address] abdomen pelvis shows : progressively worsened bilateral hydroureteronephrosis , with tumor invasion to both ureters , multiple mural based bladder tumor showing progression of disease , metastatic nodule at rt lower lobe of lungs very poor prognosis heme Onc eval requested pt follows with Dr Mata -appreciate input given progression of disease while on Optidivo -Immunotherapy is discontinued pt is being transferred to [place] for obstructive uropathy , wide spread tumor invasin in ureter -needs percutaneous drainage will cont to follow up with Dr Mata after being discharged form [place] ACUTE KIDNEY INJURY /ATN WITH OBSTRUCTIVE UROPATHY : due to obstructive uropathy with tumor invasion in bilat ureter gradual worsening of Cr -0.9 ( 08/11/17 ) -> 1.4 ( 08/25/17) -> 2.3 ( 09/01/17 ) -> 3.15 ( 09/04/17 ) given IVF cr worsened 3.15->3.8 pt dose not have s/s of uremia appreciate input from Nephrology needs to remove the tumor obstruction /renal drainage by Nephrostomy tube getting tx to [place] today HX OF RECURRENT UTI : due to tumor mass in bladder Cystocope showed -numerous bladder tumor with film of necrotic tissue adhere to them possible causing repeated Bladder infection recent urine culture was Klebsiella ordered for urine Culture -report still pending empiric Abx with Zosyn -pharmacy consulted for renal dose appreciate input on Zosyn 3.375 gm Iv Q 12 , which will be continued in [place] during and after IR guided procedure TYPE 2 DM hold Metformin insulin SSI DIABETIC NEUROPATHY was on High dose of Neurontin 600 mg at AM/600 mg Noon /900 mg at PM dose reduced to 300 mg TID for low Cr clearance FULL CODE -d/w with patient DVT PROPHYLAXIS : moderate to high risk Scd and teds due to hematuria DISPOSITION : Pt being transferred to [facility] for IR guided percutaneous Nephrostomy tube placement accepting [facility] Physician /hospitalist Dr Hamilton Total time spent on discharge = 45 MINS This includes examination of the patient, discharge planning, medication reconciliation, and communication with other providers. Discharge Instructions Discharge Instructions Date of Service Sep 05, 2017. Admission Reason for Admission: Bladder Ca In Situ, Hematuria Discharge Discharge Diagnosis / Problem: METASTATIC BLADDER CA , URETERIC OBSTRUCTION DUE TO TUMOR, ALYSSA Discharge Goals Goal(s): Improve disease control, Diagnostic testing, Therapeutic intervention Activity Recommendations Activity Limitations: resume your previous activity . Instructions / Follow-Up Instructions / Follow-Up PT IS BEING TRANSFERRED TO [facility] FOR IR GUIDED PERCUTANEOUS NEPHROSTOMY ACCEPTING HOSPITALIST AT [facility] DR HAMILTON Current Hospital Diet Patient's current hospital diet: Diabetes Type 2 Diet, Renal Diet Discharge Diet Recommended Diet: Diabetes Type 2 Diet, Renal Diet Procedures Procedures Performed: Cystoscopy, right retrograde pyleogram, right stent placement Pending Studies Studies pending at discharge: no Laboratory Results Hemoglobin A1c Test 09/05/17 10:30 Range/Units Estimated Average Glucose 169 mg/dl Hemoglobin A1c 7.5 H 4.5-5.6 % Medical Emergencies . Who to Call and When: Medical Emergencies: If at any time you feel your situation is an emergency, please call 911 immediately. . Non-Emergent Contact Non-Emergency issues call your: Primary Care Provider . . "Provider Documentation" section prepared by Marie Liu. . VTE Core Measure Inpt VTE Proph given/why not?: Kristal Live, ALEJANDRA's Additional Copies To Chemo Mata M.D. Simmons, Jennifer ., MD
[2017-09-05] MEDS ORDERED: OXYCODONE/ACETAMINOPHEN 5-325 TAB PO STA (17:14)
[2017-09-05] MEDS ORDERED: OXYCODONE/ACETAMINOPHEN 5-325 TAB PO PRN (17:15)
[2017-09-05] MEDS ORDERED: NURSING VERBAL MED ORDER ONE (19:00)
[2017-09-05] MEDS ORDERED: AMLO-110 PO (19:29)
[2017-09-05] MEDS ORDERED: AMLODIPINE BESYLATE 5 MG TAB PO ONE (19:30)
[2017-09-05] MEDS ORDERED: HydrALAZINE HCL 20 MG/ML VIAL IV. PRN (19:30)
[2017-09-05 22:14] LABS: HEMATOCRIT 31.7 % (37-47); HEMOGLOBIN 9.6 g/dL (12.0-16.0)
[2017-09-06 04:30] VITALS: BP 194/71; PULSE 72; TEMP 36.7; O2SAT 99
[2017-09-06] MEDS: PIPERACILL/TAZOBAC IV 3.375 GM in DEXTROSE 5% 100ML IV SCH (04:59)
[2017-09-06] MEDS: LEVOTHYROXINE 88 MCG TAB PO SCH (05:02)
[2017-09-06] MEDS ORDERED: PROCHLORPERAZINE INJ 5 MG in SYRINGE 4 ML IV PRN (05:15)
[2017-09-06] MEDS ORDERED: HYDROmorphone INJ 0.5 MG/0.5 ML SYR IV PRN (05:15)
[2017-09-06] MEDS ORDERED: HYDROmorphone INJ 0.5 MG/0.5 ML SYR ONE (05:27)
[2017-09-06 05:30] VITALS: BP 169/79; PULSE 72
[2017-09-06 06:26] VITALS: Ht 165.1 cm; Wt 80.5 kg
[2017-09-06 07:06] LABS: HEMATOCRIT 29.6 % (37-47); HEMOGLOBIN 9.2 g/dL (12.0-16.0); MEAN CELL VOLUME 89.2 fL (80-100); MEAN CORPUSCULAR HEMOGLOBIN 27.7 pg (25-34); MEAN CORPUSCULAR HGB CONC 31.1 g/dl (32-36); MEAN PLATELET VOLUME 9.1 fL (7.4-10.4); PLATELET COUNT 254 K/uL (130-400); RED CELL DISTRIBUTION WIDTH CV 16.8 % (11.5-14.5); RED CELL DISTRIBUTION WIDTH SD 54.7 fL (36.4-46.3)
[2017-09-06] MEDS: CHOLECALCIFEROL 1000 INTER.UNIT TAB PO SCH (07:23)
[2017-09-06] MEDS: GABAPENTIN 300 MG CAP PO SCH (07:23)
[2017-09-06] MEDS: DULOXETINE (CYMBALTA) 30 MG CAP PO SCH (07:23)
[2017-09-06] MEDS: FLUTICASONE/SALMETEROL 250/50 (ADVAIR) 14 PUFF/1 INHALER INH SCH (07:56)
[2017-09-06] MEDS ORDERED: AMLODIPINE BESYLATE 5 MG TAB PO SCH (08:00)
[2017-09-06 08:21] VITALS: BP 146/63; PULSE 79; TEMP 36.8; O2SAT 94
[2017-09-06 08:39] LABS: ALBUMIN 2.8 gm/dl (3.4-5.0); CALCIUM 8.2 mg/dl (8.5-10.1); CREATININE 6.2 mg/dl (0.60-1.20); POTASSIUM 4.9 mmol/L (3.5-5.1); TOTAL PROTEIN 6.5 gm/dl (6.4-8.2)
== END 2017-09-06 08:49 | disposition short-term general hospital (02) | DRG 668 ==
LOC: C.EDB 10:57 → C.4E 15:53 → ENRESERV 16:03
PROVIDERS: ADMIT Hospitalist; ATTEND Internal Medicine
PROC: 0T768DZ Dilation of Right Ureter with Intraluminal Device, Via Natural or Artificial Opening Endoscopic (ICD-10-PCS; principal; 2017-09-05 07:30)
PROC: BT16YZZ Fluoroscopy of Right Ureter using Other Contrast (ICD-10-PCS; principal; 2017-09-05 07:30)
PROC: 0TBB8ZZ Excision of Bladder, Via Natural or Artificial Opening Endoscopic (ICD-10-PCS; principal; 2017-09-05 07:30)
DX: D41.4 Neoplasm of uncertain behavior of bladder (principal); N17.0 Acute kidney failure with tubular necrosis; C78.01 Secondary malignant neoplasm of right lung; C79.19 Secondary malignant neoplasm of other urinary organs; N13.8 Other obstructive and reflux uropathy; N13.1 Hydronephrosis with ureteral stricture, not elsewhere classified; N39.0 Urinary tract infection, site not specified; R31.9 Hematuria, unspecified; B96.1 Klebsiella pneumoniae [K. pneumoniae] as the cause of diseases classified elsewhere; I10 Essential (primary) hypertension; E03.9 Hypothyroidism, unspecified; E11.40 Type 2 diabetes mellitus with diabetic neuropathy, unspecified; E78.5 Hyperlipidemia, unspecified; J45.909 Unspecified asthma, uncomplicated; Z79.52 Long term (current) use of systemic steroids; Z79.84 Long term (current) use of oral hypoglycemic drugs; Z79.899 Other long term (current) drug therapy; Z87.891 Personal history of nicotine dependence; Z88.8 Allergy status to other drugs, medicaments and biological substances; Z91.041 Radiographic dye allergy status; Z83.3 Family history of diabetes mellitus; Z86.73 Personal history of transient ischemic attack (TIA), and cerebral infarction without residual deficits